=== PATIENT | female | born 1960 | race Caucasian/White ===

== ENCOUNTER 2020-09-20 05:09 | Emergency (ER) | payer OTHER, SELFPAY ==
[2020-09-20] VITALS (8 sets, daily range): BP systolic 127–145; BP diastolic 71–75; PULSE 90–106; RESP 12–20; TEMP 37.1–39.6; O2SAT 95–99
--- NOTE | ~2020-09-20 | XR_ITS ---
EXAMINATION: XR chest 1V portable DATE: 09/20/2020 06:51 INDICATION: Fever. TECHNIQUE: A single frontal view of the chest was obtained. COMPARISON: Chest 2 views 02/26/2010 FINDINGS: There are airspace opacities in left lower lung zone. No pleural effusion or pneumothorax. The heart size is normal. IMPRESSION: 1. Airspace opacities in left lower lung zone, consistent with pneumonia. Reviewed, dictated and finalized at location A.
[2020-09-20] MEDS: ACETAMINOPHEN 500 MG TABLET 1000 MG PO (06:00)
[2020-09-20] MEDS: SODIUM CHLORIDE 0.9% IV 1,000 ML 1000 ML IV CONT (06:08)
--- NOTE | 2020-09-20 06:12 | ED.SOB ---
HPI - SOB/Dyspnea General Chief Complaint: Shortness of Breath/Dyspnea Stated Complaint: feeling sick Time Seen by Provider: 09/20/20 05:45 Source: patient Mode of arrival: ambulatory Limitations: no limitations History of Present Illness HPI Narrative: Patient states she has had severe body aches, fever, and shortness of breath since Saturday. She has had a poor appetite and has not felt like even getting out of bed to go to the bathroom. Discomfort has been severe and ongoing since Saturday, not relieved by home measures. She has had moderately severe abdominal pain over her bladder and in her low back. Shortness of breath has been severe and has been made worse with any activity. MD elicited complaint: shortness of breath Severity: moderate Exacerbating factors: exertion Relieving factors: rest Related Data Allergies Allergy/AdvReac Type Severity Reaction Status Date / Time hydrocodone Allergy Unknown Verified 09/29/08 12:28 NONE Allergy Unknown Uncoded 12/08/02 12:54 CODEINE (Generic Allergy) Allergy Y Uncoded 12/08/02 13:52 Review of Systems Constitutional: Constitutional: Reports chills, Reports fatigue, Reports fever(s) and Reports weakness Eyes: Eyes: Reports no additional eye complaints ENT: Reports system reviewed and no additional complaints, except as documented Cardiovascular: Cardiovascular: Reports no additional cardiovascular complaints Respiratory: Respiratory: Reports cough and Reports dyspnea Gastrointestinal: Gastrointestinal: Reports abdominal pain Genitourinary: Genitourinary: Reports no additional female genitourinary complaints Musculoskeletal: Musculoskeletal: Reports no additional musculoskeletal complaints Integumentary/Breasts: Skin/Breast: Reports system reviewed and no additional complaints, except as docu Neurologic: Reports system reviewed and no additional complaints, except as documented Psychiatric: Psychiatric: Reports no additional psychiatric complaints Endocrine: Endocrine: Reports no additional endocrine complaints Hematologic/Lymphatic: Hematologic/Lymphatic: Reports no additional hematologic/lymphatic complaints Allergic/Immunologic: Allergic/Immunologic: Reports no additional allergic/immunologic complaints [facility] Past Medical History Medical History No significant past medical history Surgical History Surgical History H/O hand surgery Family History Family History (Updated 09/20/20 @ 06:19 by Axel Valnete MD) Mother Hypertension Social History Social History (Updated 09/20/20 @ 06:19 by Axel Valente MD) Smoking status: Current some day smoker Additional smoking assessment comments: sometimes smokes when with friends who do Alcohol use details: social at times Exam Const: Orientation/consciousness: patient oriented x3 HENMT: Head: normal to inspection Ears: external ears normal and TM's normal bilaterally Face and sinus: normal facial exam Mouth: Yes Normal oral and palatal mucosa present Throat: posterior oropharynx normal Eyes: Conjunctivae: conjunctivae normal Neck: Neck: normal visual inspection Chest: Chest palpation & inspection: normal inspection of the chest Resp: Effort & Inspection: normal respiratory effort Auscultation: clear to auscultation bilaterally Cardio: Rate: regular rate Rhythm: regular rhythm GI: GI Palp: Yes Soft to palpation (mild tenderness over bladder) : Other: deferred Skin: General skin exam: normal color Neuro: General: patient oriented x3 and moves all extremities Extrem: General: normal to inspection Psych: Mental Status: mental status grossly normal Thought content: Yes Normal thought content present Course Course Emergency Course: Labs, CXR were reviewed. Sign out to Dr Walden at 7am. Vital Signs Vital signs: Vital Signs Temperature 39.6 C H 09/20/20 05:34 Pulse
[2020-09-20 06:17] LABS: Basophils Absolute Auto 0.02 K/mm3 (0.00-0.10); Basophils Percent Auto 0.2 % (0.0-1.0); Eosinophils Absolute Auto 0.01 K/mm3 (0.02-0.50); Eosinophils Percent Auto 0.1 % (1.0-6.0); Hematocrit 37.8 % (35.0-49.0); Hemoglobin 12.8 g/dL (12.0-15.0); Immature Granulocyte Absolute 0.16 K/mm3 (0.00-0.00); Immature Granulocyte Percent A 1.2 % (0.0-0.0); Lymphocytes Absolute Auto 1.11 K/mm3 (1.10-4.50); Lymphocytes Percent Auto 8.5 % (18.0-42.0); Mean Corpuscular HGB Conc 33.9 g/dL (32.0-36.0); Mean Corpuscular Hemoglobin 30.4 pg (27.0-31.0); Mean Corpuscular Volume 89.8 fL (78.0-102.0); Mean Platelet Volume 11.9 fl (9.2-11.8); Monocytes Absolute Auto 0.99 K/mm3 (0.10-0.90); Monocytes Percent Auto 7.6 % (2.0-11.0); Neutrophils Absolute Auto 10.8 K/mm3 (1.7-7.2); Neutrophils Percent Auto 82.4 % (50.0-70.0); Platelet Count Result 247 K/mm3 (150-420); Red Blood Count 4.21 M/mm3 (4.20-5.40); Red Cell Distribution Width 13.4 % (11.6-14.4); White Blood Count 13.1 K/mm3 (4.8-10.8)
[2020-09-20 06:18] LABS: Add Urine Microscopic? YES; Appearance Urine Sl Cloudy (Clear); Bilirubin Urine Negative (Negative); Blood Urine 1+ (Negative); Color Urine Yellow (Yellow); Glucose Urine UA Negative (Negative); Ketones Urine Negative (Negative); Leukocyte Esterase Ur Negative (Negative); Nitrate Urine Negative (Negative); Protein Urine 3+ (Negative); Specific Grav Ur 1.025 (1.010-1.020)
[2020-09-20 06:26] LABS: Bacteria Urine 2+ /hpf; Squamous Epithelial Cell Urine Many /hpf (Few); WBC Urine 0-3 /hpf (0-3)
[2020-09-20 06:38] LABS: Alanine Aminotransferase 64 U/L (14-59); Alkaline Phosphatase 83 U/L (46-116); Anion Gap 13 mmol/L (8-16); Aspartate Amino Transferase 43 U/L (15-37); Bilirubin,Total 0.4 mg/dL (0.00-1.00); Blood Urea Nitrogen 14 mg/dL (7-18); Calcium 9.6 mg/dL (8.5-10.1); Carbon Dioxide 26 mmol/L (21-32); Chloride 92 mmol/L (98-108); Estimated CRCL calculation 42 ml/min; Estimated Glomerular Filt Rate 45; Glucose 141 mg/dL (70-99); Osmolality Calculated 274 mOsm/kg (285-295); Potassium 3.5 mmol/L (3.5-5.1); Sodium 131 mmol/L (136-145); Total Protein 8.7 g/dL (6.4-8.2)
[2020-09-20 06:46] LABS: Lipase 97 U/L (73-393)
[2020-09-20 06:50] LABS: BNP 96.8 pg/mL (0-100)
[2020-09-20 06:52] LABS: SARS-CoV-2 Ag Negative (Negative)
[2020-09-20 06:54] LABS: Lactic Acid Reflex 1.2 mmol/L (0.4-2.0)
--- NOTE | 2020-09-20 07:14 | PC.NURSE ---
Pt. resting, report given to GINA Sierra
[2020-09-20 07:15] LABS: Influenza Control Valid (Valid)
[2020-09-20] MEDS: ALBUTEROL SULFATE NEB 2.5 MG/3 ML INH INHALATION (07:41)
== END 2020-09-20 09:09 | disposition home or self-care (01) ==
PROVIDERS: Emergency Medicine; Emergency Provider Emergency Medicine; PCP Internal Medicine
DX: J18.9 Pneumonia, unspecified organism (principal); Z20.822 Contact with and (suspected) exposure to COVID-19; F17.200 Nicotine dependence, unspecified, uncomplicated; R50.9 Fever, unspecified
CPT/HCPCS: 36415; 71045; 80053; 81001; 83605; 83690; 83880; 85025; 87040; 87086; 87088; 87426; 87804; 94640; 96361; 96365; 99282; 99284; C9803; J1956; J7030

== ENCOUNTER 2020-09-28 08:39 | Outpatient (CLI) | payer OTHER, SELFPAY ==
--- NOTE | ~2020-09-28 | XR_ITS ---
EXAMINATION: XR chest 2V EXAM DATE: 09/28/2020 09:04 INDICATION: Pneumonia, still shortness of breath. TECHNIQUE: Frontal and lateral projections of the chest obtained and reviewed. Comparison is made to prior examination from 09/20/2020. FINDINGS: Significant improvement in previously seen left basilar pneumonia, with development of sma ll amount of left basilar postinfectious atelectasis. Moderate chronic hyperinflation. There is no pn eumothorax suspected. There are no pleural effusions. Cardiomediastinal silhouette is normal. There a re no osseous abnormalities identified. IMPRESSION: 1. Significant improvement in left basilar pneumonia. 2. Development of subsegmental atelectasis. 3. Chronic hyperinflation. Reviewed, dictated and finalized at location A.
--- NOTE | ~2020-09-28 | US_ITS ---
EXAMINATION: US right upper quadrant DATE: 09/28/2020 09:49 INDICATION: Elevated liver enzymes TECHNIQUE: Multiple grayscale and Doppler ultrasound images of the abdomen were obtained. COMPARISON: 10/21/2014 FINDINGS: The head and body of the pancreas are normal. The pancreatic tail is obscured by bowel gas. The liver is normal with normal echogenicity and echotexture. No surface nodularity. Normal hepatope muriel flow in the main portal vein. The gallbladder is normal with no abnormal wall thickening, pericho lecystic fluid or stones. The normal common bile duct measures 4 mm. There was no sonographic Norris sign. IMPRESSION: 1. Normal sonographic study of the gallbladder. Reviewed, dictated and finalized at location B.
== END 2020-09-28 08:40 | disposition home or self-care (01) ==
LOC: CHSIMG 08:42
PROVIDERS: PCP Internal Medicine; Visit Provider Internal Medicine
DX: R94.5 Abnormal results of liver function studies (principal); J18.9 Pneumonia, unspecified organism; Z51.89 Encounter for other specified aftercare
CPT/HCPCS: 71046; 76705

== ENCOUNTER 2020-10-17 13:34 | Outpatient (CLI) | payer OTHER, SELFPAY ==
[2020-10-17 13:45] LABS: Basophils Absolute Auto 0.04 K/mm3 (0.00-0.10); Basophils Percent Auto 0.5 % (0.0-1.0); Eosinophils Percent Auto 2.7 % (1.0-6.0); Hematocrit 37.6 % (35.0-49.0); Hemoglobin 12.4 g/dL (12.0-15.0); Immature Granulocyte Absolute 0.02 K/mm3 (0.00-0.00); Immature Granulocyte Percent A 0.3 % (0.0-0.0); Lymphocytes Absolute Auto 2.57 K/mm3 (1.10-4.50); Lymphocytes Percent Auto 34.2 % (18.0-42.0); Mean Corpuscular Volume 90.8 fL (78.0-102.0); Mean Platelet Volume 11.2 fl (9.2-11.8); Monocytes Absolute Auto 0.67 K/mm3 (0.10-0.90); Monocytes Percent Auto 8.9 % (2.0-11.0); Neutrophils Percent Auto 53.4 % (50.0-70.0); Platelet Count Result 207 K/mm3 (150-420); Red Blood Count 4.14 M/mm3 (4.20-5.40); Red Cell Distribution Width 13.1 % (11.6-14.4); White Blood Count 7.5 K/mm3 (4.8-10.8)
[2020-10-17 14:09] LABS: Alanine Aminotransferase 59 U/L (14-59); Albumin Level 4.2 g/dL (3.4-5.0); Alkaline Phosphatase 63 U/L (46-116); Anion Gap 9 mmol/L (8-16); Aspartate Amino Transferase 29 U/L (15-37); Bilirubin,Total 0.5 mg/dL (0.00-1.00); Blood Urea Nitrogen 20 mg/dL (7-18); Calcium 9.7 mg/dL (8.5-10.1); Carbon Dioxide 27 mmol/L (21-32); Chloride 103 mmol/L (98-108); Estimated Glomerular Filt Rate 42; Glucose 93 mg/dL (70-99); Osmolality Calculated 290 mOsm/kg (285-295); Potassium 4.1 mmol/L (3.5-5.1); Sodium 139 mmol/L (136-145); Total Protein 7.1 g/dL (6.4-8.2)
== END 2020-10-17 13:35 | disposition home or self-care (01) ==
LOC: CHSLAB 13:38
PROVIDERS: PCP Internal Medicine; Visit Provider Internal Medicine
DX: J18.9 Pneumonia, unspecified organism (principal); R94.5 Abnormal results of liver function studies
CPT/HCPCS: 36415; 80053; 85025

== ENCOUNTER 2020-10-31 15:13 | Outpatient (CLI) | payer OTHER, SELFPAY ==
--- NOTE | ~2020-10-31 | XR_ITS ---
XR heel RT min 2V DATE: 10/31/2020 15:49 INDICATION: Right heel and foot pain TECHNIQUE: Axial and lateral views COMPARISON: 10/31/2020 right foot FINDINGS: Mild plantar and posterior calcaneal enthesopathy. No fracture, dislocation or bone destruction of the calcaneus. IMPRESSION: Mild plantar and posterior calcaneal enthesopathy Reviewed, dictated and finalized at location A.
--- NOTE | ~2020-10-31 | XR_ITS ---
XR foot RT 2V DATE: 10/31/2020 15:49 INDICATION: Right heel and foot pain TECHNIQUE: 4 views COMPARISON: 10/31/2020 right heel FINDINGS: Mild plantar and posterior calcaneal enthesopathy without evidence of erosive change or per iostitis. Os tibiale externum, normal variant. No fracture, dislocation, periosteal reaction or bone destruction. IMPRESSION: Mild plantar and posterior calcaneal enthesopathy Reviewed, dictated and finalized at location A.
[2020-10-31 15:30] LABS: Basophils Absolute Auto 0.05 K/mm3 (0.00-0.10); Basophils Percent Auto 0.5 % (0.0-1.0); Eosinophils Absolute Auto 0.12 K/mm3 (0.02-0.50); Eosinophils Percent Auto 1.3 % (1.0-6.0); Hematocrit 39.2 % (35.0-49.0); Hemoglobin 12.8 g/dL (12.0-15.0); Immature Granulocyte Absolute 0.03 K/mm3 (0.00-0.00); Immature Granulocyte Percent A 0.3 % (0.0-0.0); Lymphocytes Absolute Auto 2.45 K/mm3 (1.10-4.50); Lymphocytes Percent Auto 25.9 % (18.0-42.0); Mean Corpuscular HGB Conc 32.7 g/dL (32.0-36.0); Mean Corpuscular Hemoglobin 29.4 pg (27.0-31.0); Mean Corpuscular Volume 90.1 fL (78.0-102.0); Mean Platelet Volume 11.3 fl (9.2-11.8); Monocytes Absolute Auto 0.68 K/mm3 (0.10-0.90); Monocytes Percent Auto 7.2 % (2.0-11.0); Neutrophils Absolute Auto 6.1 K/mm3 (1.7-7.2); Neutrophils Percent Auto 64.8 % (50.0-70.0); Platelet Count Result 280 K/mm3 (150-420); Red Blood Count 4.35 M/mm3 (4.20-5.40); Red Cell Distribution Width 12.5 % (11.6-14.4); White Blood Count 9.5 K/mm3 (4.8-10.8)
[2020-10-31 16:32] LABS: Alanine Aminotransferase 38 U/L (14-59); Albumin Level 4.5 g/dL (3.4-5.0); Alkaline Phosphatase 65 U/L (46-116); Anion Gap 9 mmol/L (8-16); Aspartate Amino Transferase 25 U/L (15-37); Bilirubin,Total 0.3 mg/dL (0.00-1.00); Blood Urea Nitrogen 20 mg/dL (7-18); Calcium 9.9 mg/dL (8.5-10.1); Carbon Dioxide 30 mmol/L (21-32); Chloride 102 mmol/L (98-108); Estimated Glomerular Filt Rate 56; Glucose 84 mg/dL (70-99); Osmolality Calculated 293 mOsm/kg (285-295); Potassium 4.2 mmol/L (3.5-5.1); Sodium 141 mmol/L (136-145); Total Protein 7.5 g/dL (6.4-8.2)
== END 2020-10-31 15:14 | disposition home or self-care (01) ==
LOC: CHSIMG 15:16
PROVIDERS: PCP Internal Medicine; Visit Provider Internal Medicine
DX: M79.671 Pain in right foot (principal); R79.89 Other specified abnormal findings of blood chemistry
CPT/HCPCS: 36415; 73620; 73650; 80053; 85025

== ENCOUNTER 2022-07-07 01:12 | Emergency (ER) | payer OTHER, SELFPAY ==
--- NOTE | ~2022-07-07 | XR_ITS ---
EXAMINATION: XR ankle LT min 3V DATE: 07/07/2022 01:27 INDICATION: Left ankle pain. Fall. TECHNIQUE: 4 views of left ankle were obtained. COMPARISON: None. FINDINGS: There is an oblique fracture of distal fibula with medial aspect of the fracture line 6 mm proximal to the level of the tibial plafond. The distal fracture fragment demonstrates near-anatomic alignment. There is mild osteoarthritis of talonavicular joint. There are enthesophytes at the upholstery covers inspector ior and plantar aspects of calcaneal tuberosity. IMPRESSION: 1. Oblique fracture of distal fibula. Reviewed, dictated and finalized at location A. IER SELF SERVICE GASOLINE
[2022-07-07 01:16] VITALS: BP 139/85; PULSE 83; RESP 18; TEMP 36.7; O2SAT 100
--- NOTE | 2022-07-07 01:37 | ED.LOWEXIN ---
HPI - Extremity Injury (Lower) General Chief Complaint: Extremity Injury, Lower Stated Complaint: Extremity Injury, Lower Source: patient and RN notes reviewed Mode of arrival: ambulatory Limitations: no limitations History of Present Illness HPI Narrative: Patient had been out with her daughters. She had some drinks earlier in the evening. She misstepped while she was out and twisted her left ankle. complaint: ankle injury Onset (ago): hour(s) (1) Injury: Left: ankle Type of Injury: inversion Place: street/outdoors Severity: moderate Relieving factors: rest Exacerbating factors: weight bearing, movement and palpation Context: walking Associated symptoms: snap/pop sensation and unable to bear weight Other symptoms: none Related Data Allergies Allergy/AdvReac Type Severity Reaction Status Date / Time hydrocodone Allergy Unknown Verified 09/29/08 12:28 NONE Allergy Unknown Uncoded 12/08/02 12:54 CODEINE (Generic Allergy) Allergy Y Uncoded 12/08/02 13:52 Review of Systems Review of Systems: All systems reviewed & are unremarkable except as noted in HPI and below PMFSH Past Medical History Medical History No significant past medical history Surgical History Surgical History H/O hand surgery Family History Family History (Updated 09/20/20 @ 06:19 by Axel Valente MD) Mother Hypertension Social History Social History (Updated 07/07/22 @ 01:39 by Axel Moses MD) Smoking status: Former smoker Additional smoking assessment comments: sometimes smokes when with friends who do Alcohol use details: social at times Exam Const: General: healthy appearing, no acute distress and alert Nutritional Appearance: well nourished Orientation/consciousness: patient oriented x3 Limitations: no limitations HENMT: Head: normal to inspection Ears: external ears normal Face/Nose/Sinus: Normal external nose present Face and sinus: normal facial exam Mouth: Yes moist mucous membranes Eyes: Conjunctivae: conjunctivae normal Pupils: Equal, round and reactive pupils present EOM: EOMs intact bilaterally Neck: Neck: normal visual inspection Resp: Effort & Inspection: normal respiratory effort Auscultation: clear to auscultation bilaterally Cardio: Rate: regular rate Rhythm: regular rhythm GI: GI Palp: Yes Soft to palpation and No Tenderness to palpation present (GI) Auscultation: normal bowel sounds Back/Spine/Pelvis: Cervical Spine: cervical ROM normal Thoracic/Lumbar Spine: thoraco-lumbar ROM normal Skin: General skin exam: normal color Rashes: no rashes Neuro: General: patient oriented x3, moves all extremities, no focal motor deficits and CN's II-XI intact bilaterally Speech: normal speech Extrem: General: normal exam except as noted and no clubbing, cyanosis or edema Left lower extremity: lower leg Details: tenderness Location: of the distal fibula and localized swelling Location: of the distal lower leg, ankle Details: tenderness Location: not of the lateral malleolus, not of the medial malleolus and not of the anterior talofibular ligament and foot Details: no tenderness Psych: Mental Status: mental status grossly normal Affect: normal affect Attitude: cooperative Course Vital Signs Vital signs: Vital Signs Temperature 36.7 C 07/07/22 01:16 Pulse Rate 83 07/07/22 01:16 Respiratory Rate 18 07/07/22 01:16 Blood Pressure 139/85 07/07/22 01:16 Pulse Oximetry 100 07/07/22 01:16 Oxygen Delivery Room Air 07/07/22 01:16 Temperature 36.7 C 07/07/22 01:16 Pulse Rate 83 07/07/22 01:16 Respiratory Rate 18 07/07/22 01:16 Blood Pressure 139/85 07/07/22 01:16 Pulse Oximetry 100 07/07/22 01:16 Oxygen Delivery Room Air 07/07/22 01:16 Procedures Orthopedic Splinting/Casting Injury #1: Splinting/Casting Date: 07/07/22 Side: left
[2022-07-07] MEDS: KETOROLAC 30 MG/ML VIAL (*BKC) IM (01:42)
== END 2022-07-07 02:08 | disposition home or self-care (01) ==
LOC: CHSED 01:53
PROVIDERS: Emergency Provider Emergency Medicine; PCP Internal Medicine
DX: S82.832A Other fracture of upper and lower end of left fibula, initial encounter for closed fracture (principal); Z87.891 Personal history of nicotine dependence; X50.0XXA Overexertion from strenuous movement or load, initial encounter
CPT/HCPCS: 73610; 96372; 99283; J1885; L2112

== ENCOUNTER 2022-07-24 10:55 | Outpatient (CLI) | payer OTHER, SELFPAY ==
--- NOTE | ~2022-07-24 | XR_ITS ---
Left ankle Technique: AP, oblique, and lateral views were obtained. Clinical History: Fracture COMPARISON: 07/07/2022 Findings: Oblique, minimally displaced fracture of the distal fibula, just proximal to the level ankl e mortise, is essentially stable from prior exam. Questionable minimal early callus formation.. Ankle mortise and other visualized joint spaces are preserved. Soft tissues are otherwise unremarkable. Impression: Oblique fracture of the distal fibula is essentially unchanged from prior exam. Questionable minimal callus formation. Reviewed, dictated and finalized at location M. OR IN CHIEF NEWSPAPER Impression: Oblique fracture of the distal fibula is essentially unchanged from prior exam. Questionable minimal callus formation.
== END 2022-07-24 10:56 | disposition home or self-care (01) ==
LOC: CHSLAB 10:58 → CHSIMG 11:00
PROVIDERS: PCP Internal Medicine; Visit Provider Internal Medicine
DX: S82.892A Other fracture of left lower leg, initial encounter for closed fracture (principal)
CPT/HCPCS: 73610

== ENCOUNTER 2022-08-23 09:58 | Outpatient (CLI) | payer OTHER, SELFPAY ==
--- NOTE | ~2022-08-23 | XR_ITS ---
XR ankle LT min 3V DATE: 08/23/2022 10:17 INDICATION: Left distal fibular fracture follow-up TECHNIQUE: 4 views COMPARISON: July 24, 2022 left ankle FINDINGS: Virtually nondisplaced linear oblique fracture of the distal fibula slightly superior to th e ankle mortise is again noted. The fracture line is less apparent, with some sclerotic new bone form ation. There is no interval change in position or alignment. Ankle mortise is intact. IMPRESSION: Healing virtually nondisplaced distal fibular fracture Reviewed, dictated and finalized at location L. S EXHIBITOR
== END 2022-08-23 09:59 | disposition home or self-care (01) ==
LOC: CHSIMG 10:01
PROVIDERS: PCP Internal Medicine; Visit Provider Internal Medicine
DX: S82.832D Other fracture of upper and lower end of left fibula, subsequent encounter for closed fracture with routine healing (principal)
CPT/HCPCS: 73610

== ENCOUNTER 2022-08-27 08:24 | Outpatient (RCR) | payer OTHER, SELFPAY ==
--- NOTE | 2022-08-27 09:25 | PTOPEVAL1 ---
Assessment and note entered by JT File, PT Evaluation Information Assessment Status Evaluation Diagnosis L distal fibular fracture Onset 07/06/22 Subjective Information patient reports she broke her L ankle on 07/06/22 in a fall. she reports the leg was caught between the lawnmower and her floor danielle. 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 she reports she has to be on her feet all day. she reports she has difficulty with walking. she reports it feels weird to walk. she reports she also has pain and tightness in the ankle and foot. she reports her toes feel a bit numb. she reports they have been this way since the break. she reports she does get swelling in the L ankle if she is up on her feet too much. Reported Pain Level Pain Score 3: Self Report Assessment PT Clinical Summary mrs. atkinson is a 61 yo woman who presents to skilled PT services for evaluation and treatment of pain and weakness in the L ankle following a fracture. she presents today with weakness, pain, decreased rom, and abnormal gait mechanics. she would benefit from skilled PT to address her objective/functional deficits and progress towards a return to her prior level functional activity performance/quality of life. Plan of Care Interventions Electrical Stimulation,Gait Training,Hot Pack/Cold Pack,Manual Therapy,Neuro Re-education,Patient/ Caregiver Educati,Therapeutic Activities, Therapeutic Exercise PT Services Indicated Yes Treatment Frequency and 3x weekly for 12 visits Duration These treatments will address the objective and functional deficits as defined above. The patient will be advanced safely and appropriately in order for the patient to progress towards his/her prior level of function. Additional exercises will be introduced and as well as a comprehensive home exercise program upon discharge, if needed, ?to ensure carryover of functional gains achieved in the clinic. This treatment plan has been reviewed and agreement upon by the patient.
== END 2022-09-06 23:59 | disposition home or self-care (01) ==
LOC: CHSPT 08:24
PROVIDERS: PCP Internal Medicine; Visit Provider Internal Medicine
DX: S82.832D Other fracture of upper and lower end of left fibula, subsequent encounter for closed fracture with routine healing (principal)
CPT/HCPCS: 97014; 97110; 97112; 97161; 97530; G0283

== ENCOUNTER 2022-12-30 16:49 | Emergency (ER) | payer OTHER, SELFPAY ==
[2022-12-30 16:49] VITALS: BP 161/91; PULSE 70; RESP 16; TEMP 36.3; O2SAT 100
[2022-12-30] MEDS: TETANUS,DIPHTHERIA,AC PERTUSSIS ADULT 0.5 ML (ADACEL) IM (17:03)
[2022-12-30] MEDS: LIDOCAINE HCL 1% LOCAL INJ 10 ML VIAL 3 ML INFILTRATE (17:05)
--- NOTE | 2022-12-30 17:08 | ED.GENADULT ---
HPI - General Adult General Chief complaint: Wound/Laceration Stated complaint: finger laceration Time Seen by Provider: 12/30/22 16:55 Source: patient Mode of arrival: ambulatory Limitations: no limitations History of Present Illness HPI narrative: 62-year-old white right-handed female was using a food greater to clean it and it cut her right little finger on the lateral aspect shaving the skin. Continues to bleed. Patient is given a tetanus shot in the emergency department. Denies any loss of function. Denies any other injury. Otherwise been doing fine eating drinking stooling and voiding fine. Denies cough shortness of breath fever sore throat runny nose problems walking talking seeing or hearing, numbness or weakness, rash or itching swelling lumps or bumps bruising, dizziness or lightheadedness. Denies any other complaints. Related Data Allergies Allergy/AdvReac Type Severity Reaction Status Date / Time hydrocodone Allergy Unknown Verified 09/29/08 12:28 NONE Allergy Unknown Uncoded 12/08/02 12:54 CODEINE (Generic Allergy) Allergy Y Uncoded 12/08/02 13:52 Review of Systems Review of Systems: All systems reviewed & are unremarkable except as noted in HPI and below PMFSH Past Medical History Medical History No significant past medical history Surgical History Surgical History H/O hand surgery Family History Family History (Updated 09/20/20 @ 06:19 by Axel Valente MD) Mother Hypertension Social History Social History (Updated 07/07/22 @ 01:39 by Axel Moses MD) Smoking status: Former smoker Additional smoking assessment comments: sometimes smokes when with friends who do Alcohol use details: social at times Exam Narrative: White patient female with mild distress.? Head normocephalic, atraumatic.? Eyes conjunctiva pink sclera nonicteric.? Extraocular movements are intact.? Ears externally normal.? Extremities: Right little finger ulnar side distal phalanx shaved laceration with active bleeding. Controlled with pressure initially. There is no tendon injury neurovascular is intact capillary refill is normal.? Skin is warm and dry without rashes or lesions.? Neurological patient is alert and oriented x4.? Motor and sensory grossly intact.? Gait is normal. Course Vital Signs Vital signs: Vital Signs Temperature 36.3 C L 12/30/22 16:49 Pulse Rate 70 12/30/22 16:49 Respiratory Rate 16 12/30/22 16:49 Blood Pressure 161/91 H 12/30/22 16:49 Pulse Oximetry 100 12/30/22 16:49 Oxygen Delivery Room Air 12/30/22 16:49 Temperature 36.3 C L 12/30/22 16:49 Pulse Rate 70 12/30/22 16:49 Respiratory Rate 16 12/30/22 16:49 Blood Pressure 161/91 H 12/30/22 16:49 Pulse Oximetry 100 12/30/22 16:49 Oxygen Delivery Room Air 12/30/22 16:49 Medical Decision Making MDM Narrative Medical decision making narrative: Patient was placed in room 7 history and physical were performed she was given a tetanus immunization surgeon gel was placed on the wound digital block with 1% lidocaine was given. surgicel and gauze was applied the wound and pressure was held. Small tourniquet was applied to right finger. Then silver nitrate was tried but was unsuccessful in controlling the bleeding. Tried electrocautery using a pen without success. So ultimately we added Surgicel guaze and pressure dressing applied which controlled the bleeding. she is given acetaminophen and Augmentin 875 Independent Historian: ? alexandro Zhao Differential Dx includes but not limited to: laceration coagulopathy Medications were Reviewed:? medicines reviewed? Medications treatments given: digital block with 1% lidocaine, silver nitrate sticks electrocautery Surgicel and a pressure dressing. Independently Interpreted by me:? External Source Review:?? Patient had a
[2022-12-30] MEDS: ACETAMINOPHEN 500 MG TABLET 1000 MG PO (17:38)
[2022-12-30] MEDS: SILVER NITRATE (*SP) STICK 10 EACH TOPICAL (17:39)
[2022-12-30] MEDS: AMOXICILLIN/CLAVULANATE K 875-125 MG TAB 1 TABLET PO (17:43)
[2022-12-30 17:49] VITALS: BP 160/90; PULSE 76; RESP 20; TEMP 36.8; O2SAT 97
== END 2022-12-30 17:57 | disposition home or self-care (01) ==
PROVIDERS: Emergency Provider Emergency Medicine; PCP Internal Medicine
DX: S61.216A Laceration without foreign body of right little finger without damage to nail, initial encounter (principal); Z87.891 Personal history of nicotine dependence; Z23 Encounter for immunization; W26.8XXA Contact with other sharp object(s), not elsewhere classified, initial encounter
CPT/HCPCS: 12001; 90471; 90715; 99283; A9270

== ENCOUNTER 2023-01-16 07:15 | Outpatient (CLI) | payer OTHER, SELFPAY ==
[2023-01-16 07:29] LABS: Basophils Absolute Auto 0.03 K/mm3 (0.00-0.10); Basophils Percent Auto 0.6 % (0.0-1.0); Eosinophils Absolute Auto 0.14 K/mm3 (0.02-0.50); Eosinophils Percent Auto 2.6 % (1.0-6.0); Hematocrit 37.5 % (35.0-49.0); Hemoglobin 12.4 g/dL (12.0-15.0); Immature Granulocyte Absolute 0.01 K/mm3 (0.00-0.00); Immature Granulocyte Percent A 0.2 % (0.0-0.0); Lymphocytes Absolute Auto 2.05 K/mm3 (1.10-4.50); Lymphocytes Percent Auto 37.7 % (18.0-42.0); Mean Corpuscular HGB Conc 33.1 g/dL (32.0-36.0); Mean Corpuscular Hemoglobin 30.4 pg (27.0-31.0); Mean Corpuscular Volume 91.9 fL (78.0-102.0); Mean Platelet Volume 11.1 fl (9.2-11.8); Monocytes Absolute Auto 0.45 K/mm3 (0.10-0.90); Monocytes Percent Auto 8.3 % (2.0-11.0); Neutrophils Absolute Auto 2.8 K/mm3 (1.7-7.2); Neutrophils Percent Auto 50.6 % (50.0-70.0); Platelet Count Result 250 K/mm3 (150-420); Red Blood Count 4.08 M/mm3 (4.20-5.40); Red Cell Distribution Width 12.4 % (11.6-14.4); White Blood Count 5.4 K/mm3 (4.8-10.8)
[2023-01-16 07:31] LABS: Appearance Urine Clear (Clear); Bilirubin Urine Negative (Negative); Blood Urine Negative (Negative); Color Urine Light Yellow (Yellow); Glucose Urine UA Negative (Negative); Ketones Urine Negative (Negative); Leukocyte Esterase Ur Negative (Negative); Nitrate Urine Negative (Negative); Protein Urine Negative (Negative); Urobilinogen Urine 0.2 mg/dL (0.2-1.0); pH Urine 6.5 (5.0-8.0)
[2023-01-16 07:32] LABS: Add Urine Microscopic? NO
--- NOTE | 2023-01-16 07:34 | ECG_ITS ---
Measurements Intervals [place] Rate: 51 P: 47 OK: 195 QRS: 63 QRSD: 89 T: 48 QT: 447 QTc: 415 Interpretive Statements SINUS BRADYCARDIA NO PREVIOUS ECG AVAILABLE FOR COMPARISON Electronically Signed On 01-16-2023 19:41:13 CDT by Elina Roth M.D.
[2023-01-16 08:16] LABS: Alanine Aminotransferase 29 U/L (14-59); Albumin Level 3.9 g/dL (3.4-5.0); Alkaline Phosphatase 55 U/L (46-116); Anion Gap 8 mmol/L (8-16); Aspartate Amino Transferase 16 U/L (15-37); Bilirubin,Total 0.4 mg/dL (0.00-1.00); Blood Urea Nitrogen 22 mg/dL (7-18); Carbon Dioxide 29 mmol/L (21-32); Chloride 105 mmol/L (98-108); Cholesterol 246 mg/dL (0-200); Estimated Glomerular Filt Rate 60; Glucose 108 mg/dL (70-99); HDL Direct 75 mg/dL (40-60); LDL Cholesterol Calculated 157 mg/dL (<130); Osmolality Calculated 298 mOsm/kg (285-295); Potassium 4.4 mmol/L (3.5-5.1); Sodium 142 mmol/L (136-145); Thyroid Stimulating Hormone 1.55 uIU/mL (0.36-3.74); Total Protein 6.8 g/dL (6.4-8.2); Triglycerides 70 mg/dL (0-150)
[2023-01-16 11:26] LABS: Hemoglobin A1C 5.5 % (<5.7)
== END 2023-01-16 07:16 | disposition home or self-care (01) ==
LOC: CHSLAB 07:17
PROVIDERS: PCP Internal Medicine; Visit Provider Internal Medicine
DX: I10 Essential (primary) hypertension (principal); R73.09 Other abnormal glucose; R00.1 Bradycardia, unspecified
CPT/HCPCS: 36415; 80053; 80061; 81003; 83036; 84443; 85025; 93005

== ENCOUNTER 2023-01-17 12:08 | Outpatient (CLI) | payer OTHER, SELFPAY ==
--- NOTE | ~2023-01-17 | XR_ITS ---
Clinical Indication: Hypertension PA and lateral views of the chest: Comparison: 09/28/2020 Findings: The lungs are clear, without evidence of focal consolidation or pleural effusion. Cardiome diastinal silhouette is within normal limits. Bones and soft tissues are unremarkable. Impression: Normal chest. Reviewed, dictated and finalized at location . Impression: Normal chest.
== END 2023-01-17 12:09 | disposition home or self-care (01) ==
LOC: CHSIMG 12:11
PROVIDERS: PCP Internal Medicine; Visit Provider Internal Medicine
DX: I10 Essential (primary) hypertension (principal)
CPT/HCPCS: 71046

== ENCOUNTER 2023-02-06 11:55 | Outpatient (CLI) | payer OTHER, SELFPAY ==
--- NOTE | ~2023-02-06 | MM_ITS ---
EXAMINATION: MM screening naomi BI w victor hugo HISTORY: Screening mammogram TECHNIQUE: Craniocaudal and mediolateral oblique 3-D tomosynthesis images were obtained and synthetic 2-D images were generated. CAD analysis was submitted and interpreted. COMPARISON: August 03, 2016 bilateral screening mammogram BREAST PARENCHYMAL COMPOSITION: The breasts are heterogeneously dense, which may obscure small masses . FINDINGS: There is no evidence of suspicious mass, calcification, or architectural distortion to sugg est malignancy in either breast. There has been no suspicious interval change. IMPRESSION: 1. No mammographic evidence of malignancy. 2. Recommend routine screening mammography in one year. BI-RADS Category 1: Negative Reviewed, dictated and finalized at location A.
--- NOTE | ~2023-02-06 | DEXA_ITS ---
Bone Density Report Name: GENE VILLALBA Age: 62 Sex: Female Ethnicity: White Date of : 1960 Indication: postmenopausal; screening for osteoporosis; prior fracture; Referring Provider: Vishnu Arellano Study: Bone densitometry was performed. Exam Date: February 06, 2023 Accession number: [id number] Bone Density: Region BMD T-score Z-score Classification AP Spine(L1-L4) 0.937 -1.0 0.4 Normal Femoral Neck (Left) 0.700 -1.3 0.0 Osteopenia Total Hip (Left) 0.811 -1.1 -0.1 Osteopenia Femoral Neck (Right) 0.648 -1.8 -0.5 Osteopenia Total Hip (Right) 0.808 -1.1 -0.1 Osteopenia Femoral Neck Mean 0.674 -1.6 -0.3 Osteopenia Total Hip Mean 0.809 -1.1 -0.1 Osteopenia World Health Organization criteria for BMD impression classify patients as: Normal (T-score at or above -1.0), Osteopenia (T-score between -1.0 and -2.5), or Osteoporosis (T-score at or below -2.5). 10-year Fracture Risk(1): Major Osteoporotic Fracture 15% Hip Fracture 1.6% Reported Risk Factors: [place] (), Neck BMD=0.648, BMI=24.3, previous fracture (1) FRAX(R) Version 3.08. Fracture probability calculated for an untreated patient. Fracture probability may be lower if the patient has received treatment. Clinical Information Provided by Patient: Has had a low trauma fracture Has used the following medications: Vitamin D, multi Patient maximum height was 66 Menopause Age: 54 No regular weight bearing exercise Drinks caffeinated beverages Onset of menses at age 16 Number of children 2 Impression: The patient has low bone mass, based on the Right Femoral Neck T-score. The patient has risk factors, including: previous fracture. Discussion: BONE DENSITY IS LOW AT ONE OR MORE SKELETAL SITES. This patient's lowest T-score is low at one or more skeletal sites. It meets the World Health Organization's (WHO) criteria for ?low bone mass? (T-score between -1.0 and -2.5). The patient's 10-year risk of fracture as calculated by FRAX is less than the threshold where pharmacological therapy is recommended by the National Osteoporosis Foundation (NOF). However, all treatment decisions require clinical judgment and consideration of individual patient factors, including patient preferences, comorbidities, previous drug use, risk factors not captured in the FRAX model (e.g., frailty, falls, vitamin D deficiency, increased bone turnover, interval significant decline in bone density) and possible under or overestimation of fracture risk by FRAX. The patient should follow a healthful lifestyle (good nutrition with adequate calcium and vitamin D, and appropriate weight-bearing exercise). Follow-Up: Consider repeating this study in 2 to 3 years to reassess this patient's status, or sooner if there is some new clinica
== END 2023-02-06 11:56 | disposition home or self-care (01) ==
LOC: CHSIMG 11:56
PROVIDERS: PCP Internal Medicine; Visit Provider Internal Medicine
DX: Z12.31 Encounter for screening mammogram for malignant neoplasm of breast (principal); Z78.0 Asymptomatic menopausal state; M85.89 Other specified disorders of bone density and structure, multiple sites
CPT/HCPCS: 77063; 77067; 77080

== ENCOUNTER 2023-02-07 14:28 | Outpatient (CLI) | payer OTHER, SELFPAY ==
[2023-02-10 22:22] LABS: Vitamin D 25 Hydroxy 58 ng/mL (30-100)
== END 2023-02-07 14:29 | disposition home or self-care (01) ==
LOC: CHSLAB 14:30
PROVIDERS: PCP Internal Medicine; Visit Provider Nurse Practitioner Family
DX: M85.89 Other specified disorders of bone density and structure, multiple sites (principal); Z78.0 Asymptomatic menopausal state; E55.9 Vitamin D deficiency, unspecified
CPT/HCPCS: 36415; 82306

== ENCOUNTER 2023-03-01 15:14 | Outpatient (CLI) | payer OTHER, SELFPAY ==
--- NOTE | ~2023-03-01 | XR_ITS ---
XR chest 2V 03/01/2023 15:44 Indication: Tachycardia Procedure: 2 view chest Comparison: Comparison to multiple prior studies sequentially, with oldest reviewed study dated 02/26. Findings: Heart size normal. No focal air space disease, pulmonary edema, pleural effusion or suspect ed pneumothorax. Impression: 1: No acute cardiopulmonary disease. Reviewed, dictated and finalized at location B. Impression: 1: No acute cardiopulmonary disease.
[2023-03-01 15:33] LABS: Basophils Absolute Auto 0.03 K/mm3 (0.00-0.10); Basophils Percent Auto 0.3 % (0.0-1.0); Eosinophils Absolute Auto 0.07 K/mm3 (0.02-0.50); Eosinophils Percent Auto 0.8 % (1.0-6.0); Hematocrit 39.4 % (35.0-49.0); Hemoglobin 13.1 g/dL (12.0-15.0); Immature Granulocyte Absolute 0.02 K/mm3 (0.00-0.00); Immature Granulocyte Percent A 0.2 % (0.0-0.0); Lymphocytes Absolute Auto 2.38 K/mm3 (1.10-4.50); Lymphocytes Percent Auto 27.3 % (18.0-42.0); Mean Corpuscular HGB Conc 33.2 g/dL (32.0-36.0); Mean Corpuscular Volume 90.2 fL (78.0-102.0); Mean Platelet Volume 11.5 fl (9.2-11.8); Monocytes Absolute Auto 0.65 K/mm3 (0.10-0.90); Monocytes Percent Auto 7.5 % (2.0-11.0); Neutrophils Absolute Auto 5.6 K/mm3 (1.7-7.2); Neutrophils Percent Auto 63.9 % (50.0-70.0); Platelet Count Result 277 K/mm3 (150-420); Red Blood Count 4.37 M/mm3 (4.20-5.40); Red Cell Distribution Width 12.4 % (11.6-14.4); White Blood Count 8.7 K/mm3 (4.8-10.8)
[2023-03-01 15:36] LABS: Appearance Urine Clear (Clear); Bilirubin Urine Negative (Negative); Blood Urine Negative (Negative); Color Urine Light Yellow (Yellow); Glucose Urine UA Negative (Negative); Ketones Urine Trace (Negative); Leukocyte Esterase Ur Negative (Negative); Nitrate Urine Negative (Negative); Protein Urine Trace (Negative); Specific Grav Ur 1.025 (1.010-1.020); Urobilinogen Urine 0.2 mg/dL (0.2-1.0)
[2023-03-01 15:46] LABS: D Dimer 0.19 mg/L (0.19-0.50)
[2023-03-01 15:47] LABS: Add Urine Microscopic? YES; RBC Urine None seen /hpf (0-2); WBC Urine None seen /hpf (0-3)
[2023-03-01 15:48] LABS: Bacteria Urine 1+ /hpf; Squamous Epithelial Cell Urine Few /hpf (Few)
[2023-03-01 15:49] LABS: Influenza Control Valid (Valid); SARS-CoV-2 Ag Negative (Negative)
[2023-03-01 16:04] LABS: Alanine Aminotransferase 24 U/L (14-59); Albumin Level 4.6 g/dL (3.4-5.0); Alkaline Phosphatase 60 U/L (46-116); Anion Gap 9 mmol/L (8-16); Aspartate Amino Transferase 12 U/L (15-37); Bilirubin,Total 0.4 mg/dL (0.00-1.00); Blood Urea Nitrogen 35 mg/dL (7-18); CRP < 0.1 mg/dL (0.0-0.9); Calcium 10.1 mg/dL (8.5-10.1); Carbon Dioxide 29 mmol/L (21-32); Chloride 103 mmol/L (98-108); Creatine Kinase 172 U/L (26-192); Estimated Glomerular Filt Rate 31; Glucose 109 mg/dL (70-99); Osmolality Calculated 301 mOsm/kg (285-295); Potassium 4.4 mmol/L (3.5-5.1); Sodium 141 mmol/L (136-145); Total Protein 7.9 g/dL (6.4-8.2)
== END 2023-03-01 15:15 | disposition home or self-care (01) ==
LOC: CHSLAB 15:17
PROVIDERS: PCP Internal Medicine; Visit Provider Nurse Practitioner Family
DX: R00.0 Tachycardia, unspecified (principal); I10 Essential (primary) hypertension; R52 Pain, unspecified
CPT/HCPCS: 71046; 80053; 81001; 82550; 82553; 84484; 85025; 85380; 86140; 87086; 87088; 87426; 87804; C9803

== ENCOUNTER 2023-03-04 13:08 | Outpatient (CLI) | payer OTHER, SELFPAY ==
[2023-03-04 14:07] LABS: Appearance Urine Clear (Clear); Bilirubin Urine Negative (Negative); Blood Urine Negative (Negative); Color Urine Light Yellow (Yellow); Glucose Urine UA Negative (Negative); Ketones Urine Negative (Negative); Leukocyte Esterase Ur Negative (Negative); Nitrate Urine Negative (Negative); Protein Urine Negative (Negative); Specific Grav Ur >= 1.030 (1.010-1.020); Urobilinogen Urine 0.2 mg/dL (0.2-1.0); pH Urine 5.5 (5.0-8.0)
[2023-03-04 14:19] LABS: Add Urine Microscopic? NO
[2023-03-04 17:26] LABS: Alanine Aminotransferase 25 U/L (14-59); Albumin Level 4.4 g/dL (3.4-5.0); Alkaline Phosphatase 55 U/L (46-116); Anion Gap 13 mmol/L (8-16); Aspartate Amino Transferase 22 U/L (15-37); Bilirubin,Total 0.5 mg/dL (0.00-1.00); Blood Urea Nitrogen 24 mg/dL (7-18); Calcium 9.6 mg/dL (8.5-10.1); Carbon Dioxide 25 mmol/L (21-32); Chloride 103 mmol/L (98-108); Estimated Glomerular Filt Rate 49; Glucose 112 mg/dL (70-99); Osmolality Calculated 297 mOsm/kg (285-295); Potassium 4.6 mmol/L (3.5-5.1); Sodium 141 mmol/L (136-145); Total Protein 7.2 g/dL (6.4-8.2)
--- NOTE | 2023-03-05 15:14 | WPDHOLTEREM ---
Holter/Event Monitor Holter/Event Monitor Date of procedure: 03/04/23 Holter/Event Procedure: 24 Hr Holter Monitor Indications: Tachycardia Conclusion: 1. 24 hour holter monitor on 03/04/23. 2. Underlying rhythm is sinus rhythm. HR range 47-141 bpm; average HR 76 bpm. HR at 141 bpm was at 11:52. 3. There are 32 premature supraventricular complexes and 2 supraventricular couplets. No supraventricular tachycardia. 4. No premature ventricular complexes. No ventricular tachycardia. 5. No sinoatrial or atrioventricular blocks. No significant pauses greater than 2 seconds. There is 1 episode of second degree AV block, type I at 02:44. 6. No symptoms available for correlation.
== END 2023-03-04 13:09 | disposition home or self-care (01) ==
LOC: CHSLAB 13:10
PROVIDERS: PCP Internal Medicine; Visit Provider Nurse Practitioner Family
DX: N28.9 Disorder of kidney and ureter, unspecified (principal); I10 Essential (primary) hypertension; R00.0 Tachycardia, unspecified; I44.1 Atrioventricular block, second degree
CPT/HCPCS: 36415; 80053; 81003; 93225; 93226

== ENCOUNTER 2023-03-21 07:14 | Outpatient (CLI) | payer OTHER, SELFPAY ==
--- NOTE | ~2023-03-21 | US_ITS ---
Renal-Bladder ultrasound Clinical History: Acute kidney injury Technique: Real-time sonographic imaging of the kidneys and urinary bladder was performed. Findings: The right kidney measures 10.3 cm in length and the left kidney measures 10.4 cm. There is no hydronephrosis or renal calculus identified. Renal cortical echogenicity is within normal limits. No renal mass lesion is identified. The urinary bladder is moderately distended at the time of this exam. No intraluminal echoes are iden tified. No abnormal wall thickening is seen. Impression: Unremarkable ultrasound of the kidneys and urinary bladder. Reviewed, dictated and finalized at location M. Impression: Unremarkable ultrasound of the kidneys and urinary bladder.
[2023-03-21 08:25] LABS: Alanine Aminotransferase 24 U/L (14-59); Alkaline Phosphatase 54 U/L (46-116); Anion Gap 8 mmol/L (8-16); Aspartate Amino Transferase 17 U/L (15-37); Bilirubin,Total 0.3 mg/dL (0.00-1.00); Blood Urea Nitrogen 22 mg/dL (7-18); Carbon Dioxide 27 mmol/L (21-32); Chloride 101 mmol/L (98-108); Estimated Glomerular Filt Rate > 60; Glucose 102 mg/dL (70-99); Osmolality Calculated 285 mOsm/kg (285-295); Potassium 4.4 mmol/L (3.5-5.1); Sodium 136 mmol/L (136-145); Total Protein 6.7 g/dL (6.4-8.2)
== END 2023-03-21 07:15 | disposition home or self-care (01) ==
LOC: CHSIMG 07:15
PROVIDERS: PCP Internal Medicine; Visit Provider Internal Medicine
DX: N17.9 Acute kidney failure, unspecified (principal)
CPT/HCPCS: 36415; 76775; 80053

== ENCOUNTER 2023-04-01 13:34 | Outpatient (CLI) | payer OTHER, SELFPAY ==
--- NOTE | 2023-04-01 13:40 | ECHO_ITS ---
Patient Info Name: Danelle Bo Age: 62 years : 1960 Gender: Female Ht: 66 in Wt: 150 lbs BSA: 1.79 m2 HR: 70 bpm BP: 160 / 95 mmHg Heart Rhythm: Sinus Rhythm Technical Quality: Good Exam Date: 04/01/2023 1:52 PM Exam Location: [facility] Patient Status: Outpatient Admit Date: 04/01/2023 Staff Ordering Physician: Vishnu Arellano MD Body Straightener: Jane Wilson RDCS Attending Provider: Vishnu Arellano MD Exam Type: CA echo doppler color flow Study Info Indications - Tachycardia Complete two-dimensional, color flow and Doppler transthoracic echocardiogram is performed. Summary 1. Complete two-dimensional, color flow and Doppler transthoracic echocardiogram is performed. 2. Left ventricular chamber dimension is normal. 3. Left ventricular systolic function is normal, estimated at 60-65%. 4. The left ventricular diastolic function is abnormal. 5. E/e' 10 is mildly elevated. 6. There is mild aortic valve sclerosis. 7. There is mild mitral valve regurgitation. 8. There is trace tricuspid valve regurgitation. 9. No pulmonary hypertension, estimated pulmonary arterial systolic pressure is 22 mmHg. 10. There is trace pulmonic regurgitation. Left Ventricle E/e' 10 is mildly elevated. Left ventricular chamber dimension is normal. Left ventricular systolic function is normal, estimated at 60-65%. The left ventricular diastolic function is abnormal. Right Ventricle Right ventricular systolic function is normal and with normal TAPSE 2.4 cm. Right ventricular chamber dimension is normal. Left Atria Left atrial chamber dimension is normal. Right Atria Right atrial chamber dimension is normal. Aortic Valve The aortic valve is trileaflet. There is mild aortic valve sclerosis. There is no aortic valve stenosis. There is no aortic valve regurgitation. Pulmonic Valve There is trace pulmonic regurgitation. Mitral Valve There is no mitral valve stenosis. There is mild mitral valve regurgitation. Tricuspid Valve There is trace tricuspid valve regurgitation. No pulmonary hypertension, estimated pulmonary arterial systolic pressure is 22 mmHg. Pericardium/Pleural There is no pericardial effusion. Inferior Vena Cava Normal inferior vena cava with >50% collapse upon inspiration consistent with normal right atrial pressure, 5 mmHg. Aorta The aortic root size at the sinus of Valsalva is normal. Left Ventricular Outflow Tract Name Value Normal LVOT 2D LVOT Diameter 2.2 cm LVOT Doppler LVOT Peak Velocity 137 cm/s LVOT Peak Gradient 7 mmHg LVOT Mean Gradient 4 mmHg LVOT VTI 33 cm LVOT VTI/AV VTI Ratio 0.7 LVOT Stroke Volume 124 ml Pulmonic Valve Name Value Normal RVOT Doppler RVOT Peak Gradient 2 mmHg PV Doppler
== END 2023-04-01 13:35 | disposition home or self-care (01) ==
LOC: CHSIMG 13:35
PROVIDERS: PCP Internal Medicine; Visit Provider Internal Medicine
DX: N17.9 Acute kidney failure, unspecified (principal); R93.1 Abnormal findings on diagnostic imaging of heart and coronary circulation
CPT/HCPCS: 93306

== ENCOUNTER 2023-08-23 19:24 | Emergency (ER) | payer OTHER, SELFPAY ==
[2023-08-23] VITALS (33 sets, daily range): BP systolic 126–185; BP diastolic 68–93; PULSE 50–74; RESP 10–22; TEMP 36.6; O2SAT 99–100
--- NOTE | ~2023-08-23 | CT_ITS ---
EXAMINATION: CTA chest abdomen pelvis DATE: 08/23/2023 20:51 INDICATION: Epigastric abdominal pain. TECHNIQUE: Computed tomographic angiography (CTA) of the chest and abdomen was performed with 100 mL Omnipaque-350 intravenous contrast. Automated exposure control and iterative reconstruction technique were employed. The dose-length product was 473.09 mGy-cm. Maximum intensity projection 3D-reconstruc tions of the aorta and other arteries were constructed by the technologist on a separate workstation. COMPARISON: None. FINDINGS: CHEST CTA: There is mild scarring at the lung apices. No pleural effusion. The heart size is normal. No pericard ial effusion. Thoracic aorta is normal. There is mild thoracic spondylosis. ABDOMEN CTA: The liver, gallbladder, spleen, pancreas, adrenal glands, and kidneys are normal. There are no dilate d loops of bowel. There are changes of appendectomy. There are no pathologically enlarged lymph nodes . There is no free intraperitoneal fluid. Abdominal aorta is normal. There is no significant stenosis of celiac axis, superior mesenteric artery, the renal arteries, or inferior mesenteric artery. There is mild lumbar spondylosis. IMPRESSION: 1. No etiology for the patient's symptoms. Reviewed, dictated and finalized at location E. ORIAL ASSISTANT
--- NOTE | 2023-08-23 19:33 | ED.ABDPAIN ---
HPI - Abdominal Pain General Chief Complaint: Abdominal Pain Stated Complaint: upper belly pain Time Seen by Provider: 08/23/23 19:27 History of Present Illness HPI narrative: Patient is a 62 year old female with history of HTN here with nausea, abdominal pain and chest pain. Patient notes that for the last week she has had abdominal fullness after eating. She notes that she gets this discomfort after each meal. Over the last 3 days she has gotten increasingly more nauseous. This is also usually occurring after meals. She notes that since 5:30 AM today she has had constant epigastric abdominal pain and lower mid chest pain. She notes it is sharp, cramping and radiates into her shoulders and her back. She attempted to do various activities around her house today and take several antacids without any relief of the symptoms. She denies prior cardiac history, no prior stress test or cardiac cath. She denies recent travel. No recent changes in food. No fever, chills, cough, congestion. She denies leg swelling or shortness of breath. No sick contacts. She is normally very active and walks and does yoga daily. She has seen a complex commercial litigation paralegal once recently and had an EKG, ECHO and holter monitor performed which she believes was normal. No prior endoscopy or colonoscopies. No prior abdominal surgeries. Normal bowel movements, 2 of which occurred today, formed stools, no diarrhea. Related Data Home Medications Medication Instructions Recorded Confirmed alendronate 70 mg tablet 70 mg PO DAILY 08/23/23 08/23/23 losartan 25 mg tablet 25 mg PO BID 08/23/23 08/23/23 venlafaxine 37.5 mg 37.5 mg PO DAILY 08/23/23 08/23/23 capsule,extended release 24 hr venlafaxine 75 mg capsule,extended 75 mg PO DAILY 08/23/23 08/23/23 release 24 hr verapamil 120 mg tablet,extended 120 mg PO DAILY 08/23/23 08/23/23 release Allergies Allergy/AdvReac Type Severity Reaction Status Date / Time hydrocodone Allergy Unknown Verified 09/29/08 12:28 NONE Allergy Unknown Uncoded 12/08/02 12:54 CODEINE (Generic Allergy) Allergy Y Uncoded 12/08/02 13:52 Review of Systems Review of Systems: All systems reviewed & are unremarkable except as noted in HPI and below PMFSH Past Medical History Medical History No significant past medical history Surgical History Surgical History H/O hand surgery Family History Family History (Updated 09/20/20 @ 06:19 by Axel Valente MD) Mother Hypertension Social History Social History (Updated 07/07/22 @ 01:39 by Axel Moses MD) Smoking status: Former smoker Additional smoking assessment comments: sometimes smokes when with friends who do Alcohol use details: social at times Exam Narrative: GENERAL: Well-appearing, well-nourished, and in no acute distress. HEAD: Normocephalic, atraumatic. EYES: PERRLA and EOMI. ENT: Nares clear. Mucous membranes moist. NECK: Supple. CHEST: Clear to auscultation. No respiratory distress. Tenderness over the area of the manubrium. HEART: Regular rate and rhythm. Normal peripheral pulses. ABDOMEN: Soft, epigastric tenderness, mild RUQ tenderness, negative Norris sign, no rebound or guarding, nondistended. EXTREMITIES: Normal range of motion. No lower extremity edema. No calf tenderness. SKIN: Warm, dry, no rash. NEURO: No focal deficits. Alert and oriented x3. PSYCH: Normal mood and affect. Course Course Emergency Course: Chart review performed. Patient here with nausea and concern for gallbladder attack. Triage vitals normal. ECHO on 04/01/23 reviewed. EF 60-65%. Patient seen and evaluated, non toxic appearing. Alert, oriented. Differentials include gastritis, esophagitis, ACS, less likely biliary pathology. Although less likely, context of pain above and below the diaphragm, will additionally do CTA dissection study to ensure no aortic pathology causing
--- NOTE | 2023-08-23 19:42 | ECG_ITS ---
Measurements Intervals Jackson Rate: 61 P: 68 VA: 204 QRS: 74 QRSD: 82 T: 61 QT: 429 QTc: 432 Interpretive Statements SINUS RHYTHM BORDERLINE R WAVE PROGRESSION, ANTERIOR LEADS BORDERLINE ECG BASELINE ARTIFACT- II, III, AVF COMPARED TO ECG 01/16/2023 07:56:59 SINUS RHYTHM NOW PRESENT Electronically Signed On 08-24-2023 7:38:55 PIGMENT PRESSER by Lyndon Smith D.O.
[2023-08-23] MEDS: ASPIRIN 81 MG CHEWABLE TABLET 324 MG PO (19:57)
[2023-08-23] MEDS: PANTOPRAZOLE SODIUM IV 40 MG VIAL IV PUSH (19:59)
[2023-08-23] MEDS: ONDANSETRON INJ 4 MG/2 ML VIAL IV PUSH (19:59)
[2023-08-23] MEDS: NITROGLYCERIN SL 0.4 MG TABLET SUBLINGUAL ×2 (20:03→20:19)
[2023-08-23 20:11] LABS: Basophils Absolute Auto 0.04 K/mm3 (0.00-0.10); Basophils Percent Auto 0.7 % (0.0-1.0); Eosinophils Absolute Auto 0.15 K/mm3 (0.02-0.50); Eosinophils Percent Auto 2.6 % (1.0-6.0); Hematocrit 35.4 % (35.0-49.0); Hemoglobin 11.9 g/dL (12.0-15.0); Immature Granulocyte Absolute 0.01 K/mm3 (0.00-0.00); Immature Granulocyte Percent A 0.2 % (0.0-0.0); Lymphocytes Absolute Auto 2.19 K/mm3 (1.10-4.50); Lymphocytes Percent Auto 37.2 % (18.0-42.0); Mean Corpuscular HGB Conc 33.6 g/dL (32.0-36.0); Mean Corpuscular Hemoglobin 30.4 pg (27.0-31.0); Mean Corpuscular Volume 90.3 fL (78.0-102.0); Mean Platelet Volume 11.1 fl (9.2-11.8); Monocytes Absolute Auto 0.65 K/mm3 (0.10-0.90); Monocytes Percent Auto 11.1 % (2.0-11.0); Neutrophils Absolute Auto 2.8 K/mm3 (1.7-7.2); Neutrophils Percent Auto 48.2 % (50.0-70.0); Platelet Count Result 249 K/mm3 (150-420); Red Blood Count 3.92 M/mm3 (4.20-5.40); Red Cell Distribution Width 12.9 % (11.6-14.4); White Blood Count 5.9 K/mm3 (4.8-10.8)
[2023-08-23 20:16] LABS: Appearance Urine Clear (Clear); Bilirubin Urine Negative (Negative); Blood Urine Negative (Negative); Color Urine Light Yellow (Yellow); Glucose Urine UA Negative (Negative); Ketones Urine Negative (Negative); Leukocyte Esterase Ur Negative LEU/UL (Negative); Nitrate Urine Negative (Negative); Protein Urine Negative (Negative); Urobilinogen Urine 0.2 mg/dL (0.2-1.0); pH Urine 6.5 (5.0-8.0)
[2023-08-23 20:17] LABS: Add Urine Microscopic? NO
[2023-08-23 20:25] LABS: Partial Thromboplastin Time 24.4 SEC (23.90-30.70); Prothrombin Time 10.7 Seconds (9.50-12.10)
[2023-08-23 20:35] LABS: Alanine Aminotransferase 355 U/L (14-59); Albumin Level 3.9 g/dL (3.4-5.0); Alkaline Phosphatase 114 U/L (46-116); Anion Gap 11 mmol/L (8-16); Aspartate Amino Transferase 232 U/L (15-37); Bilirubin,Total 0.3 mg/dL (0.00-1.00); Blood Urea Nitrogen 26 mg/dL (7-18); Calcium 8.9 mg/dL (8.5-10.1); Carbon Dioxide 26 mmol/L (21-32); Chloride 104 mmol/L (98-108); Estimated CRCL calculation 46 ml/min; Estimated Glomerular Filt Rate 52; Glucose 106 mg/dL (70-99); Lipase 46 U/L (16-77); NT Pro B Type Natriuretic Pept 66 pg/mL (0-125); Osmolality Calculated 296 mOsm/kg (285-295); Potassium 4.4 mmol/L (3.5-5.1); Sodium 141 mmol/L (136-145); Troponin I 4.7 ng/L (0.00-60.4)
[2023-08-23 20:51] LABS: Influenza A QL RT-PCR Negative (Negative); Influenza B QL RT-PCR Negative (Negative); RSV RNA, RT-PCR Negative (Negative); SARS-CoV-2 RNA PCR Negative (Negative)
[2023-08-23] MEDS: MAG HYDROX/ALUMINUM HYD/SIMETH 30 ML, PHENobarb/HYOSCY/ATROPINE/SCOP 32.4 MG, LIDOCAINE... PO (21:12)
[2023-08-23] MEDS: KETOROLAC 15 MG/ML VIAL (*BKC) IV PUSH (23:09)
== END 2023-08-23 23:33 | disposition home or self-care (01) ==
PROVIDERS: Emergency Provider Student in an Organized Health Care Education/Training Program; PCP Internal Medicine
DX: R10.13 Epigastric pain (principal); R07.89 Other chest pain; R74.01 Elevation of levels of liver transaminase levels; I10 Essential (primary) hypertension; Z79.899 Other long term (current) drug therapy; Z87.891 Personal history of nicotine dependence; Z20.822 Contact with and (suspected) exposure to COVID-19
CPT/HCPCS: 36415; 71275; 74174; 80053; 81003; 83690; 83880; 84484; 85025; 85610; 85730; 87637; 93005; 96374; 96375; 99284; A9270; C9113; J1885; J2405; Q9967

== ENCOUNTER 2023-11-28 07:22 | Outpatient (CLI) | payer OTHER, SELFPAY ==
--- NOTE | ~2023-11-28 | US_ITS ---
US right upper quadrant INDICATION: Biliary colic PROCEDURE: Realtime right upper abdominal ultrasound. COMPARISON: No prior studies for comparison. FINDINGS: The pancreas is normal without focal mass or pancreatic ductal dilation. Liver echotexture is normal without focal mass or intrahepatic biliary dilatation. There is normal directional flow i n the portal vein. The gallbladder is normal without stones, gallbladder wall thickening or pericholecystic fluid. Comm on bile duct measures 3 mm. No sonographic Norris's sign. IMPRESSION: 1: Normal limited abdominal ultrasound. Reviewed, dictated and finalized at location B.
[2023-11-28 08:02] LABS: Basophils Absolute Auto 0.04 K/mm3 (0.00-0.10); Basophils Percent Auto 0.6 % (0.0-1.0); Eosinophils Absolute Auto 0.15 K/mm3 (0.02-0.50); Eosinophils Percent Auto 2.1 % (1.0-6.0); Hematocrit 38.2 % (35.0-49.0); Hemoglobin 12.5 g/dL (12.0-15.0); Immature Granulocyte Absolute 0.02 K/mm3 (0.00-0.00); Immature Granulocyte Percent A 0.3 % (0.0-0.0); Lymphocytes Absolute Auto 1.83 K/mm3 (1.10-4.50); Lymphocytes Percent Auto 25.7 % (18.0-42.0); Mean Corpuscular HGB Conc 32.7 g/dL (32-36); Mean Corpuscular Hemoglobin 30.3 pg (27.0-31.0); Mean Corpuscular Volume 92.7 fL (78.0-102.0); Mean Platelet Volume 11.1 fl (9.2-11.8); Monocytes Absolute Auto 0.51 K/mm3 (0.10-0.90); Monocytes Percent Auto 7.2 % (2.0-11.0); Neutrophils Absolute Auto 4.57 K/mm3 (1.70-7.20); Neutrophils Percent Auto 64.1 % (50.0-70.0); Platelet Count Result 249 K/mm3 (150-420); Red Blood Count 4.12 M/mm3 (4.20-5.40); Red Cell Distribution Width 12.6 % (11.6-14.4); White Blood Count 7.1 K/mm3 (4.8-10.8)
[2023-11-28 08:09] LABS: Appearance Urine Clear (Clear); Bilirubin Urine Negative (Negative); Blood Urine Negative (Negative); Color Urine Yellow (Yellow); Glucose Urine UA Negative (Negative); Ketones Urine Negative (Negative); Leukocyte Esterase Ur Negative (Negative); Nitrate Urine Negative (Negative); Protein Urine Negative (Negative); Specific Grav Ur >= 1.030 (1.010-1.020); Urobilinogen Urine 0.2 mg/dL (0.2-1.0); pH Urine 5.5 (5.0-8.0)
[2023-11-28 08:17] LABS: Add Urine Microscopic? NO
[2023-11-28 08:57] LABS: Alanine Aminotransferase 32 U/L (14-59); Albumin Level 4.1 g/dL (3.4-5.0); Alkaline Phosphatase 42 U/L (46-116); Anion Gap 13 mmol/L (4-12); Aspartate Amino Transferase 22 U/L (15-37); Bilirubin,Total 0.3 mg/dL (0.00-1.00); Blood Urea Nitrogen 24 mg/dL (7-18); Calcium 9.1 mg/dL (8.5-10.1); Carbon Dioxide 25 mmol/L (21-32); Chloride 105 mmol/L (98-108); Cholesterol 271 mg/dL (0-200); Estimated Glomerular Filt Rate 53; Glucose 107 mg/dL (70-99); HDL Direct 69 mg/dL (40-60); LDL Cholesterol Calculated 177 mg/dL (<130); Osmolality Calculated 300 mOsm/kg (285-295); Potassium 4.4 mmol/L (3.5-5.1); Sodium 143 mmol/L (136-145); Thyroid Stimulating Hormone 3.01 uIU/mL (0.36-3.74); Total Protein 7.1 g/dL (6.4-8.2); Triglycerides 124 mg/dL (0-150)
[2023-11-28 14:06] LABS: Hemoglobin A1C 5.2 % (<5.7)
== END 2023-11-28 07:23 | disposition home or self-care (01) ==
LOC: CHSIMG 07:24
PROVIDERS: PCP Internal Medicine; Visit Provider Internal Medicine
DX: I10 Essential (primary) hypertension (principal); R10.84 Generalized abdominal pain; R73.09 Other abnormal glucose
CPT/HCPCS: 36415; 76705; 80053; 80061; 81003; 83036; 84443; 85025

== ENCOUNTER 2023-12-23 08:49 | Outpatient (CLI) | payer OTHER, SELFPAY ==
--- NOTE | ~2023-12-23 | NM_ITS ---
EXAMINATION: NM hepatobiliary w pharm DATE: 12/23/2023 10:57 INDICATION: Biliary dyskinesis. Abdominal pain in August COMPARISON: None. TECHNIQUE: 6.0 mCi Tc-99m mebrofenin (Choletec) was administered intravenously. Scintigraphic images of the abdomen were obtained for one hour. 1.4 mcg sincalide (Kinevac) was administered by slow intr avenous infusion, and imaging was continued for 30 minutes. Gallbladder ejection fraction was calcula geeta by the technologist. FINDINGS: There is normal clearance of radiotracer from the blood pool. There is homogeneous tracer uptake by t he liver. Activity progresses to the gallbladder and bowel. The gallbladder ejection fraction (GBEF) is 89% (normal 10-90%, but most patient with gallbladder dysfunction have GBEF < 35% which does over lap with the normal range). IMPRESSION: 1. Normal hepatobiliary scan. Reviewed, dictated and finalized at location A.
== END 2023-12-23 08:50 | disposition home or self-care (01) ==
LOC: CHSIMG 08:50
PROVIDERS: PCP Internal Medicine; Visit Provider Internal Medicine
DX: K82.8 Other specified diseases of gallbladder (principal)
CPT/HCPCS: 78227; A9537; J2805

== ENCOUNTER 2024-01-29 14:57 | Outpatient (CLI) | payer OTHER, SELFPAY ==
--- NOTE | ~2024-01-29 | XR_ITS ---
EXAMINATION:XR_CERV2-3V_CR, XR lumbar spine 2-3V, XR thoracic spine 2V DATE: 01/29/2024 15:18 INDICATION: Chronic neck and back pain TECHNIQUE: 1. AP, lateral and odontoid views of the cervical spine are provided. 2. AP, lateral and lateral swimmer's views of the thoracic spine were obtained. 3. AP, lateral and coned-down lateral lumbosacral views of the lumbar spine were obtained. COMPARISON: CT chest, abdomen and pelvis dated 08/23/2023 FINDINGS: Cervical spine Alignment is normal. Odontoid is intact. Normal atlantoaxial interval. Vertebral body heights are no rmal. Mild disc height loss at C4-C5. Remaining cervical disc spaces are normal. Chronic nonunited fr actures there is a developmentally unfused apophyseal centers of the spinous processes of C7 and T1. Multilevel moderate to severe bilateral cervical facet osteoarthritis. There is also multilevel mild to moderate cervical uncovertebral osteoarthritis. Prevertebral soft tissues are normal. Thoracic spine: 10 degrees upper thoracic levocurvature. Sagittal alignment is normal. Vertebral body heights are nor mal. Moderate disc height loss at T3-T4 through and T6-T7 with mild disc height loss from T1-T2 throu gh T11-T12. Visualized portion of the lungs are clear with no pleural effusion or pneumothorax. Cardi omediastinal silhouette is normal. Lumbar spine: 5 degrees lumbar dextrocurvature. Sagittal alignment is normal. Vertebral body heights are normal wit h small Schmorl's node along the superior endplate of L2. Mild disc height loss at L3-L4 and L5-S1. M ild to moderate lower lumbar predominant spondylosis. Surgical clips in the right pelvis likely relat ed to prior appendectomy. IMPRESSION: 1. Moderate thoracic and mild cervical and lumbar spondylosis. Reviewed, dictated and finalized at location A. IMPRESSION: 1. Moderate thoracic and mild cervical and lumbar spondylosis. IMPRESSION: 1. Moderate thoracic and mild cervical and lumbar spondylosis.
== END 2024-01-29 14:58 | disposition home or self-care (01) ==
LOC: CHSLAB 14:59
PROVIDERS: PCP Internal Medicine; Visit Provider Nurse Practitioner Family
DX: M54.50 Low back pain, unspecified (principal); M54.2 Cervicalgia; R42 Dizziness and giddiness; M47.814 Spondylosis without myelopathy or radiculopathy, thoracic region; M43.06 Spondylolysis, lumbar region; M43.02 Spondylolysis, cervical region
CPT/HCPCS: 72040; 72070; 72100

== ENCOUNTER 2024-02-13 07:31 | Outpatient (CLI) | payer OTHER, SELFPAY ==
--- NOTE | ~2024-02-13 | MM_ITS ---
EXAMINATION: MM screening naomi BI w victor hugo HISTORY: Screening TECHNIQUE: Craniocaudal and mediolateral oblique 3-D tomosynthesis images were obtained and synthetic 2-D images were generated. CAD analysis was submitted and interpreted. COMPARISON: Comparison to multiple prior studies sequentially, with oldest reviewed study dated 08/03. BREAST PARENCHYMAL COMPOSITION: Dense: The breasts are heterogeneously dense, which may obscure small masses FINDINGS: There is a new focal asymmetry laterally in the right breast, middle third, on CC view. The left breast is stable without evidence for malignancy. IMPRESSION: 1. New right breast asymmetry. 2. Additional mammographic views and possible breast ultrasound are recommended. BI-RADS Category 0: Incomplete: Needs additional imaging evaluation. Reviewed, dictated and finalized at location B. IMPRESSION: 1. New right breast asymmetry. 2. Additional mammographic views and possible breast ultrasound are recommended . BI-RADS Category 0: Incomplete: Needs additional imaging evaluation.
== END 2024-02-13 07:32 | disposition home or self-care (01) ==
LOC: CHSIMG 07:32
PROVIDERS: PCP Internal Medicine; Visit Provider Internal Medicine
DX: Z12.31 Encounter for screening mammogram for malignant neoplasm of breast (principal); R92.8 Other abnormal and inconclusive findings on diagnostic imaging of breast
CPT/HCPCS: 77063; 77067

== ENCOUNTER 2024-02-24 09:33 | Outpatient (CLI) | payer OTHER, SELFPAY ==
--- NOTE | ~2024-02-24 | MM_ITS ---
EXAMINATION: MM diagnostic naomi RT w victor hugo HISTORY: Right breast asymmetry TECHNIQUE: Additional 3-D tomosynthesis spot compression images of the right breast were performed an d synthetic 2-D images were generated. CAD analysis was submitted and interpreted. COMPARISON: 02/13/2024, 02/06/2023 BREAST PARENCHYMAL COMPOSITION:Dense: The breasts are heterogeneously dense, which may obscure small masses. FINDINGS: The asymmetric density in the right breast effaces with spot compression. No persistent mas s lesion or distortion seen. IMPRESSION: No mammographic evidence for malignancy. BI-RADS Category 1: Negative Reviewed, dictated and finalized at location .
== END 2024-02-24 09:34 | disposition home or self-care (01) ==
LOC: CHSIMG 09:36
PROVIDERS: PCP Internal Medicine; Visit Provider Internal Medicine
DX: R92.8 Other abnormal and inconclusive findings on diagnostic imaging of breast (principal)
CPT/HCPCS: 77061; 77065; G0279

== ENCOUNTER 2024-02-29 09:47 | Outpatient (CLI) | payer OTHER, SELFPAY ==
--- NOTE | ~2024-02-29 | MR_ITS ---
EXAMINATION: MR thoracic spine wo con DATE: 03/02/2024 10:27 INDICATION: Low back pain. Thoracic back pain. TECHNIQUE: Magnetic resonance imaging (MRI) of the thoracic spine was performed without intravenous c ontrast. COMPARISON: Thoracic spine radiographs 01/29/2024 FINDINGS: There is 6 degrees dextrocurvature of thoracic spine. There is mild chronic anterior wedgin g of T11 and T12 vertebral bodies. There is moderately decreased disc height at T2-T3 and T3-T4 and m ildly decreased disc height from T4-T5 through T10-T11. There are Schmorl's nodes at T11-T12 and L1-L 2. There is multilevel facet joint osteoarthritis, severe on the left at T4-T5. There is multilevel m ild neural foraminal stenosis bilaterally. At T2-T3, there is a right central extrusion with mild armando tral canal stenosis and ventral indentation of the spinal cord. At T3-T4, there is a right central pr otrusion with mild central canal stenosis and ventral indentation of the spinal cord. At T4-T5, there is a central extrusion with mild central canal stenosis. At T5-T6, there is a central extrusion with mild central canal stenosis and ventral indentation of the spinal cord. At T7-T8, there is a left ce ntral extrusion with mild central canal stenosis. At T8-T9, there is a central extrusion with mild ce ntral canal stenosis. At T9-T10, there is a left central extrusion with mild central canal stenosis. At T10-T11, there is a left foraminal extrusion with mild left neural foraminal stenosis. At T11-T12, there is a central protrusion with mild central canal stenosis. The spinal cord signal intensity is normal. The conus medullaris is at L1-L2. IMPRESSION: 1. Moderate thoracic spondylosis. Reviewed, dictated and finalized at location A.
--- NOTE | ~2024-02-29 | MR_ITS ---
EXAMINATION: MR lumbar spine wo con DATE: 03/02/2024 10:27 INDICATION: Low back pain. TECHNIQUE: Magnetic resonance imaging (MRI) of the lumbar spine was performed without intravenous con trast. Sequences included sagittal T2-weighted FSE, sagittal T2-weighted FS FSE, sagittal T1-weighted FSE, and axial T2-weighted FSE. COMPARISON: Lumbar spine MRI 12/30/2007 FINDINGS: There is 5 degrees dextrocurvature of lumbar spine. Vertebral body heights are normal. Ther e is moderately decreased disc height at L5-S1. The distal spinal cord signal intensity is normal. Th e conus medullaris is at L1-L2. The following disc levels are specifically discussed: L1-L2: There is a central protrusion. There is mild bilateral facet joint osteoarthritis. There is no neural foraminal stenosis. There is mild central canal stenosis. L2-L3: The disc is bulging. There is moderate right and mild left facet joint osteoarthritis. There i s mild bilateral neural foraminal stenosis. There is mild central canal stenosis. L3-L4: The disc is bulging. There is severe bilateral facet joint osteoarthritis. There is mild bilat eral neural foraminal stenosis. There is mild central canal stenosis. L4-L5: The disc is bulging and has an annular fissure. There is mild right and severe left facet join t osteoarthritis. There is mild bilateral neural foraminal stenosis. There is mild central canal sten osis. L5-S1: The disc is bulging. There is mild bilateral facet joint osteoarthritis. There is mild bilater al neural foraminal stenosis. There is mild central canal stenosis. IMPRESSION: 1. Mild lumbar spondylosis, worsened from 12/30/2007. Reviewed, dictated and finalized at location A.
== END 2024-02-29 09:48 | disposition home or self-care (01) ==
LOC: CHSIMG 09:48
PROVIDERS: PCP Physician Assistant; Visit Provider Physician Assistant
DX: M54.50 Low back pain, unspecified (principal); M54.16 Radiculopathy, lumbar region; M43.04 Spondylolysis, thoracic region; M43.06 Spondylolysis, lumbar region
CPT/HCPCS: 72146; 72148

== ENCOUNTER 2024-03-02 14:37 | Outpatient (RCR) | payer OTHER, SELFPAY ==
--- NOTE | 2024-03-02 15:33 | PTOPEVAL1 ---
Assessment and note entered by Ray Boss Evaluation Information Assessment Status Evaluation ICD-10 Condition Codes (PT) M54.6,Pain in low back M54.50 Onset 02/25/24 Subjective Information Pt. reports that over the year she has developed pain in the middle back and lower back. 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 She states that she has been using Asper Cream and occasional Advil. She reports that pain will wake her at night. She reports that she has hx of neck fx that happened while in high school. 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 Reported Pain Level Pain Score 5: Self Report Assessment PT Clinical Summary Pt. is a 63 year old female who enters the clinic with a diagnosis of lumbar and thoracic pain. Plan of Care Interventions Electrical Stimulation,Hot Pack/Cold Pack,Manual Therapy,Mechanical Traction,Neuro Re-education, Patient/Caregiver Educati,Therapeutic Activities, Therapeutic Exercise PT Services Indicated Yes Treatment Frequency and 2x/week x 12 visits Duration These treatments will address the objective and functional deficits as defined above. The patient will be advanced safely and appropriately in order for the patient to progress towards his/her prior level of function. Additional exercises will be introduced and as well as a comprehensive home exercise program upon discharge, if needed, ?to ensure carryover of functional gains achieved in the clinic. This treatment plan has been reviewed and agreement upon by the patient.
--- NOTE | 2024-03-02 15:34 | OPREHPOC ---
Outpatient Therapy Plan of Care This is a Multidisciplinary Plan of Care that may contain components documented by all disciplines (PT, OT, and ST.) PT Problem 1 PT Problem #1 Knowledge Deficit PT Goal 1 Goal / Goal Update Pt. will be independent with a HEP addressing core strength and trunk mobility. Target Visit 2 PT Problem 2 PT Problem #2 Impaired Functional Mobil PT Goal 1 Goal / Goal Update 1)Pt. will demonstrate safe lifting mechanics with floor to waist lifts of 20# object for 10 reps 2)Pt. will present with less than 25% limitation on the Oswestry indicating improved overall functional mobility. 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 Target Visit 12 PT Problem 3 PT Problem #3 Impaired Strength PT Goal 1 Goal / Goal Update 1)Pt. will present with 5/5 hip abduction and extension strength 2)Pt. will present with good+ upper and lower abdominal strength 3)Pt. will improve core and l.e. strength to improve stability with prolonged standing activities to decrease pain Target Visit 12 PT Problem 4 PT Problem #4 Pain PT Goal 1 Goal / Goal Update 1)Pt. will report pain levels at 5/10 at worst over a 2 week period. Target Visit 12
--- NOTE | 2024-03-12 09:59 | PCPTNOTE ---
Cancelled session due to flat tired. Will call back later to reschedule.
--- NOTE | 2024-04-08 08:12 | OPREHPOC ---
Outpatient Therapy Plan of Care This is a Multidisciplinary Plan of Care that may contain components documented by all disciplines (PT, OT, and ST.) PT Problem 1 PT Problem #1 Knowledge Deficit PT Goal 1 Goal / Goal Update Pt. will be independent with a HEP addressing core strength and trunk mobility. Target Visit 2 Progress Met PT Problem 2 PT Problem #2 Impaired Functional Mobil PT Goal 1 Goal / Goal Update 1)Pt. will demonstrate safe lifting mechanics with floor to waist lifts of 20# object for 10 reps 2)Pt. will present with less than 25% limitation on the Oswestry indicating improved overall functional mobility. 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 Target Visit 12 PT Goal 2 Goal / Goal Update Progress towards-continue PT Problem 3 PT Problem #3 Impaired Strength PT Goal 1 Goal / Goal Update 1)Pt. will present with 5/5 hip abduction and extension strength 2)Pt. will present with good+ upper and lower abdominal strength 3)Pt. will improve core and l.e. strength to improve stability with prolonged standing activities to decrease pain Target Visit 12 PT Goal 2 Goal / Goal Update Progress towards-continue PT Problem 4 PT Problem #4 Pain PT Goal 1 Goal / Goal Update 1)Pt. will report pain levels at 5/10 at worst over a 2 week period. Target Visit 12 Progress Not Met
--- NOTE | 2024-04-08 08:12 | PTOPPROG ---
Assessment and note entered by Marietta Pierre, PT Evaluation Information Assessment Status Progress ICD-10 Condition Codes (PT) M54.6,Pain in low back M54.50 Onset 02/25/24 Subjective Information Danelle Bo reports her back pain is elevated today in her mid back for unknown reasons. She reports she did not clean yesterday and has not been on her motorcycle lately and that is usually what makes her pain worse. She does feel she is improving overall but still notes weakness and stiffness. She also has a facet injection on . Assessment PT Clinical Summary Danelle Bo has completed 10 skilled PT visits for thoracic and lumbar pain. She is reporting overall improvements in pain however, she still gets increased pain with excessive cleaning and riding her motorcycle. 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 She is progressing toward her goals of improving posture, improving strength, improving spinal mobility, and demonstrating good body mechanics with functional activities. She continues to have tenderness in the thoracic spine , decreased strength in the core and hips, and pain with daily activities. She will continue to benefit from skilled PT to further address these limitations. Plan of Care Interventions Electrical Stimulation,Hot Pack/Cold Pack,Manual Therapy,Patient/Caregiver Educati,Therapeutic Exercise PT Services Indicated Yes Treatment Frequency and Continue skilled per original POC for 2 additional Duration visits These treatments will address the objective and functional deficits as defined above. The patient will be advanced safely and appropriately in order for the patient to progress towards his/her prior level of function. Additional exercises will be introduced and as well as a comprehensive home exercise program upon discharge, if needed, ?to ensure carryover of functional gains achieved in the clinic. This treatment plan has been reviewed and agreement upon by the patient.
--- NOTE | 2024-04-13 07:26 | PCPTNOTE ---
Danelle called in to cancel her appointment this morning. Ray Boss, MPT
--- NOTE | 2024-04-20 07:56 | PTOPDC ---
Assessment and note entered by Ray [facility] Evaluation Information Assessment Status Discharge ICD-10 Condition Codes (PT) M54.6,Pain in low back M54.50 Onset 02/25/24 Subjective Information Pt. reports that she is slightly improved. She reports that pain is still present and worsens with activity, making her work difficult. She states that exercise helps, but no enough. 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 She will be undergoing injection tomorrow. Reported Pain Level Pain Score 7,5: Self Report Assessment PT Clinical Summary Pt. has attended a total of 12 treatment sessions. Treatment has focused on core strength, postural awareness and mobility. she demonstrates slight improvements in Oswestry score and trunk mobility and strength. At this time pt. continues to provide reports of pain. She will continue with exercise and is ready for discharge at this time. Plan of Care PT Services Indicated No
== END 2024-04-20 13:06 | disposition home or self-care (01) ==
LOC: CHSPT 14:37
PROVIDERS: Visit Provider Physician Assistant
DX: M54.50 Low back pain, unspecified (principal); M54.6 Pain in thoracic spine
CPT/HCPCS: 97014; 97110; 97140; 97161; G0283

== ENCOUNTER 2024-07-01 08:54 | Outpatient (CLI) | payer OTHER, SELFPAY ==
[2024-07-01 09:06] LABS: Basophils Absolute Auto 0.06 K/mm3 (0.00-0.10); Eosinophils Absolute Auto 0.12 K/mm3 (0.02-0.50); Hematocrit 37.9 % (35.0-49.0); Hemoglobin 12.5 g/dL (12.0-15.0); Immature Granulocyte Absolute 0.02 K/mm3 (0.00-0.00); Immature Granulocyte Percent A 0.3 % (0.0-0.0); Lymphocytes Absolute Auto 2.44 K/mm3 (1.10-4.50); Lymphocytes Percent Auto 41.4 % (18.0-42.0); Mean Corpuscular Volume 90.9 fL (78.0-102.0); Mean Platelet Volume 10.4 fl (9.2-11.8); Monocytes Absolute Auto 0.53 K/mm3 (0.10-0.90); Neutrophils Absolute Auto 2.72 K/mm3 (1.70-7.20); Neutrophils Percent Auto 46.3 % (50.0-70.0); Platelet Count Result 303 K/mm3 (150-420); Red Blood Count 4.17 M/mm3 (4.20-5.40); Red Cell Distribution Width 12.3 % (11.6-14.4); White Blood Count 5.9 K/mm3 (4.8-10.8)
[2024-07-01 09:08] LABS: Add Urine Microscopic? NO; Appearance Urine Clear (Clear); Bilirubin Urine Negative (Negative); Blood Urine Negative (Negative); Color Urine Light Yellow (Yellow); Glucose Urine UA Negative (Negative); Ketones Urine Negative (Negative); Leukocyte Esterase Ur Negative (Negative); Nitrate Urine Negative (Negative); Protein Urine Negative (Negative); Specific Grav Ur >= 1.030 (1.010-1.020); Urobilinogen Urine 0.2 mg/dL (0.2-1.0)
[2024-07-01 09:52] LABS: Alanine Aminotransferase 36 U/L (14-59); Alkaline Phosphatase 43 U/L (46-116); Anion Gap 8 mmol/L (4-12); Aspartate Amino Transferase 15 U/L (15-37); Bilirubin,Total 0.3 mg/dL (0.00-1.00); Blood Urea Nitrogen 25 mg/dL (7-18); Calcium 8.9 mg/dL (8.5-10.1); Carbon Dioxide 29 mmol/L (21-32); Chloride 103 mmol/L (98-108); Cholesterol 274 mg/dL (0-200); Estimated Glomerular Filt Rate 45; Glucose 93 mg/dL (70-99); HDL Direct 68 mg/dL (40-60); LDL Cholesterol Calculated 179 mg/dL (<130); Osmolality Calculated 294 mOsm/kg (285-295); Potassium 4.7 mmol/L (3.5-5.1); Sodium 140 mmol/L (136-145); Total Protein 6.7 g/dL (6.4-8.2); Triglycerides 134 mg/dL (0-150)
[2024-07-01 09:59] LABS: CRP < 0.5 mg/dL (0.0-0.9)
== END 2024-07-01 08:55 | disposition home or self-care (01) ==
LOC: CHSLAB 08:56
PROVIDERS: PCP Internal Medicine; Visit Provider Internal Medicine
DX: I10 Essential (primary) hypertension (principal); M25.50 Pain in unspecified joint; E78.5 Hyperlipidemia, unspecified
CPT/HCPCS: 36415; 80053; 80061; 81003; 84443; 85025; 86140

== ENCOUNTER 2025-02-09 14:06 | Outpatient (CLI) | payer OTHER, SELFPAY ==
--- NOTE | ~2025-02-09 | DEXA_ITS ---
Bone Density Report Name: GENE VILLALBA Age: 64 Sex: Female Ethnicity: White Date of : 1960 Indication: osteopenia; Referring Provider: Vishnu Arellano Study: Bone densitometry was performed. Exam Date: February 09, 2025 Accession number: [id number] Bone Density: Region BMD T-score Z-score Classification AP Spine(L1-L4) 0.945 -0.9 0.6 Normal Femoral Neck (Left) 0.720 -1.2 0.2 Osteopenia Total Hip (Left) 0.884 -0.5 0.6 Normal Femoral Neck (Right) 0.637 -1.9 -0.5 Osteopenia Total Hip (Right) 0.857 -0.7 0.4 Normal Femoral Neck Mean 0.679 -1.5 -0.1 Osteopenia Total Hip Mean 0.870 -0.6 0.5 Normal World Health Organization criteria for BMD impression classify patients as: Normal (T-score at or above -1.0), Osteopenia (T-score between -1.0 and -2.5), or Osteoporosis (T-score at or below -2.5). 10-year Fracture Risk(1): Major Osteoporotic Fracture 9.5% Hip Fracture 1.1% Reported Risk Factors: [place] (), Neck BMD=0.637, BMI=24.3 (1) FRAX(R) Version 3.08. Fracture probability calculated for an untreated patient. Fracture probability may be lower if the patient has received treatment. Previous Exams: Region Exam Age BMD T-score BMD Change BMD Change Date g/cm2 vs Baseline vs Previous AP Spine (L1-L4) 02/09/2025 64 0.945 -0.9 0.009 (0.9%) 0.009 (0.9%) 02/06/2023 62 0.937 -1.0 Total Hip(Left) 02/09/2025 64 0.884 -0.5 0.073 (9.0%)* 0.073 (9.0%)* 02/06/2023 62 0.811 -1.1 Total Hip(Right) 02/09/2025 64 0.857 -0.7 0.049 (6.0%)* 0.049 (6.0%)* 02/06/2023 62 0.808 -1.1 *Denotes significance at 95% confidence level, LSC for AP Spine = 0.022 g/cm2, LSC for Total Hip = 0.027 g/cm2 Clinical Information Provided by Patient: Has used the following medications: Fosamax (i.e. alendronate), Vitamin D, Calcium, multi Patient maximum height was 66 Menopause Age: 54 No regular weight bearing exercise Onset of menses at age 16 Number of children 2 Impression: The patient has low bone mass, based on the Right Femoral Neck T-score. No significant bone loss was observed. Discussion: BONE DENSITY IS LOW AT ONE OR MORE SKELETAL SITES. This patient's lowest T-score is low at one or more skeletal sites. It meets the World Health Organization's (WHO) criteria for ?low bone mass? (T-score between -1.0 and -2.5). The patient's 10-year risk of fracture as calculated by FRAX is less than the threshold where pharmacological therapy is recommended by the National Osteoporosis Foundation (NOF). However, all treatment decisions require clinical judgment and consideration of individual patient factors, including patient preferences, comorbidities, previous drug use, risk factors not captured in the FRAX model (e.g., frailty, falls, vitamin D deficiency, increased bone turnover, interval significant decline in bone density) and possible under or overestimation of fracture risk by FRAX. The patient should follow a healthful lifestyle (good nutrition with adequate calcium and vitamin D, and appropriate weight-bearing exercise). Follow-Up: Consider repeating this study in 2 to 3 years to reassess this patient's status, or sooner if there is some new clinical indication. Reported by: MENDOZA on 02/09/2025 2:30:00 PM. Reviewed, dictated and finalized at location A.
--- OUTSIDE RECORDS SUMMARY | 2025-02-09 09:50 | XMS_ITS | Encounter Summary ---
Author Organization [facility] Healthcare Address [address] [place] [address] Care Team Providers Care Station Engineer Chief Name Role Phone Vishnu Arellano MD Primary Care Provider [phone] Reason for Visit * Reason Comments New Patient Encounter Details Date Type Department Care Team (Late st Contact Info) Description 02/09/2025 9:50 AM CDT Office Visit [facility] [address] [place] [address] Sandrine Lorenz MD [address] [place] [address] Menopausal symptoms (Primary Dx); Postmenopausal atrophic vaginitis; Urgency of urination; Screening for malignant neoplasm of the cervix Social History Tobacco Use Types Packs/Day Years Used Date Smoking Tobacco: Former Cigarettes Tobacco Cessation:Counseling Given: Not Answered Comments No Sex and Gender Information Value Date Recorded Sex Assigned at Not on file 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 Mammogram is scheduled next month in [place]. LMP around age 60. Hot flashes have [...] Use: Not At Risk (12/27/2018) Received from [facility] Frequency of Alcohol Consumption: Never Average [...] v increased risk of blood clots, stroke, [place] and breast cancer. Ri sks increase with [...] documented in this encounter Plan of Treatment Scheduled Orders Name Type Priority Associated Diagnoses [...] 01/18/2025 added in this encounter Care Teams Station Engineer Chief Relationship Specialty Start Date End Date Vishnu Arellano MD PCP - General Internal Medicine 01/24/20 documented as of this encounter
--- OUTSIDE RECORDS SUMMARY | 2025-02-09 13:12 | XMS_ITS | Encounter Summary ---
Author Organization [facility] Healthcare Address [address] [place] [address] Care Team Providers Care Laundry Press Operator Name Role Phone Vishnu Arellano MD Primary Care Provider Encounter Details Date Type Department Care Team (Latest Contact Info) Description 02/09/2025 1:12 PM CDT Hospital Encounter [facility] [address] [place] [phone] Screening for malignant neoplasm of the cervix Social History Tobacco Use Types Packs/Day Years Used Date Smoking Tobacco: Former Cigarettes Comments No Sex and Gender Information Value Date Recorded Sex Assigned at Not on file 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 Gender Identity Female 01/01/2025 6:44 AM CDT Sexual Orientation Not on file Occupation Industry 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 Not on file Not on file Not on file documented as of this encounter Plan of Treatment Scheduled Orders Name Type Priority Associated Diagnoses Order Schedule High Risk HPV DNA Detection with Genotyping (Molecular component) Lab Routine Screening for malignant neoplasm of the cervix Once for 1 Occurrences starting 02/09/2025 until 02/09/2025 Pap and High Risk HPV and Genotyping (Cytology Component) Pathology and Cytology Routine Screening for malignant neoplasm of the cervix Once for 1 Occurrences starting 02/09/2025 until 02/09/2025 documented as of this encounter Visit Diagnoses Diagnosis Screening for malignant neoplasm of the cervix documented in this encounter Care Teams Laundry Press Operator Relationship Specialty Start Date End Date Vishnu Arellano MD PCP - General Internal Medicine 01/24/20 documented as of this encounter
--- OUTSIDE RECORDS SUMMARY | 2025-02-09 14:09 | XMS_ITS | Clinical Summary ---
Author Organization [address] Address [address] [place] [address] Care Team Providers Care Dairy Truck Driver Name Role Phone Vishnu Arellano MD Primary Care Provider Allergies Active Allergy Reactions Criticality Noted Date Comments Codeine Nausea & Vomiting Low 02/09/2025 Medications alendronate (FOSAMAX) 70 mg tablet Take 1 tablet (70 mg total) by mouth every 7 days 01/18/2025 Active losartan (COZAAR) 25 mg tablet Take 1 tablet (25 mg total) by mouth daily 06/18/2023 Active estradiol-noreth indrone 0.5-0.1 mg per tabletIndication s:Menopausal symptoms Take 1 tablet by mouth daily 30 tablet 1 02/09/2025 Active Active Problems Problem Noted Date Diagnosed Date Hypertension 02/09/2025 Osteopenia 02/09/2025 Encounters Date Type Department Care Team Description 02/09/2025 1:12 PM CDT Hospital Encounter [facility] [address] [place] [address] Screening for malignant neoplasm of the cervix 02/09/2025 9:50 AM CDT Office Visit [facility] [address] [place] [address] Sandrine Lorenz MD Menopausal symptoms (Primary Dx); Postmenopausal atrophic vaginitis; Urgency of urination; Screening for malignant neoplasm of the cervix from Last 3 Months Surgical History Surgery Date Site/Laterality Comments HAND SURGERY EXPLORATORY LAPAROTOMY 06/17/1998 - 06/16/1999 concern for right ovarian cyst. 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 Gender Identity Female 01/01/2025 6:44 AM CDT Sexual Orientation Not on file Occupation Industry 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 Not on file Not on file Not on file Obstetrics History Para Term AB IAB SAB Ectopic Multiple Livin g Live Births 3 3 3 2 2 Date Outcome GA Total Labor Labor/2nd/3rd Weight Sex Type Anes PTL Anjana A1 A5 Name Clin 1982 2.41 kg (5 lb 5 oz) F Vaginal Living 1998 0.363 kg (12.8 oz) M Vaginal Demise 2000 2.92 kg (6 lb 7 oz) F Vaginal Living Last Filed Vital Signs Vital Sign Reading Time Taken Comments Blood Pressure 124/80 02/09/2025 9:53 AM CDT Pulse - - Temperature - - Respiratory Rate - - Oxygen Saturation - - Inhaled Oxygen Concentration - - Weight 62.1 kg (137 lb) 02/09/2025 9:53 AM CDT Height 167.6 cm (5' 6) 02/09/2025 9:53 AM CDT Body Mass Index 22.11 02/09/2025 9:53 AM CDT Plan of Treatment Health Maintenance Due Date Last Done Comments Breast Cancer Screening-Mammogram 1962 Cervical Cancer Screening 1962 Colon Cancer Screening-Colonoscopy 1962 Depression Screening 1962 Hepatitis C Screening 1962 DTaP/Tdap/Td Vaccine (1 - Tdap) 1973 Hepatitis B Screening 1980 Regular Well Visit/Exam 18-64 1980 Zoster Vaccine (1 of 2) 2012 Influenza Vaccine (#1) 2025 Pneumococcal vaccine <65 Aged Out No longer eligible based on patient's age to complete this topic Insurance [facility] Care Teams Dairy Truck Driver Relationship Specialty Start Date End Date Vishnu Arellano MD PCP - General Internal Medicine 01/24/20
== END 2025-02-09 14:07 | disposition home or self-care (01) ==
LOC: CHSIMG 14:07
PROVIDERS: PCP Internal Medicine; Visit Provider Internal Medicine
DX: Z78.0 Asymptomatic menopausal state (principal); M85.89 Other specified disorders of bone density and structure, multiple sites
CPT/HCPCS: 77080

== ENCOUNTER 2025-02-10 07:44 | Outpatient (CLI) | payer OTHER, SELFPAY ==
--- OUTSIDE RECORDS SUMMARY | 2025-02-09 09:50 | XMS_ITS | Encounter Summary ---
Author Organization [facility] Healthcare Address [address] [place] [address] Care Team Providers Care Manual Tester Name Role Phone Vishnu Arellano MD Primary Care Provider [phone] Reason for Visit * Reason Comments New Patient Encounter Details Date Type Department Care Team (Late st Contact Info) Description 02/09/2025 9:50 AM CDT Office Visit [facility] [address] [place] [address] Sandrine Lorenz MD [address] [place] [address] Menopausal symptoms (Primary Dx); Postmenopausal atrophic vaginitis; Urgency of urination; Screening for malignant neoplasm of the cervix Social History Tobacco Use Types Packs/Day Years Used Date Smoking Tobacco: Former Cigarettes Tobacco Cessation:Counseling Given: Not Answered Comments No Sex and Gender Information Value Date Recorded Sex Assigned at Not on file 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 Gender Identity Female 01/01/2025 6:44 AM CDT Sexual Orientation Not on file Occupation Industry 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 Not on file Not on file Not on file documented as of this encounter Last Filed Vital Signs Vital Sign Reading Time Taken Comments Blood Pressure 124/80 02/09/2025 9:53 AM CDT Pulse - - Temperature - - Respiratory Rate - - Oxygen Saturation - - Inhaled Oxygen Concentration - - Weight 62.1 kg (137 lb) 02/09/2025 9:53 AM CDT Height 167.6 cm (5' 6) 02/09/2025 9:53 AM CDT Body Mass Index 22.11 02/09/2025 9:53 AM CDT documented in this encounter Ordered Prescriptions Prescription Sig Dispense Quantity Refills Last Filled Start Date End Date estradiol-norethin drone 0.5-0.1 mg per tabletIndications: Menopausal symptoms Take 1 tablet by mouth daily 30 tablet 1 02/09/2025 02/09/2026 documented in this encounter Progress Notes * Sandrine Lorenz MD - 02/09/2025 9:50 AM CDT New patient- office visit Subjective : Dina Bo is a 64 y.o. new patient who presents with menopause concerns. Last Pap 20+ years ago. Denies h/o abnormal. Mammogram is scheduled next month in [place]. LMP around age 60. Hot flashes have been present since around age 55. Symptoms are throughout the day and night, affecting her sleep. She tried Effexor 37.5 mg and then 75 mg with her PCP. It seemed to help for about a month but thenno longer helpful so discontinued. She has also noticed vaginal dryness with intercourse the last 1-2 months. Tried oil-based instead of water-based lubricant, which worked better. No other vaginal complaints. She has urinary urgency with incontinence at times. Average daily fluid intake: 2-3 20-oz [place], lemonade, occasional diet tea or Sprite. Menstrual History: No LMP recorded. Patient is postmenopausal. Sexual History: OB History 3 Para 3 Term 3 AB Living 2 SAB IAB Ectopic Multiple Live Births 2 # Outcome Date GA Labor/2nd Weight Sex Type Anes PTL Lv A1 A5 1 1982 2.41 kg (5 lb 5 oz) F Vaginal Living 2 1998 0.363 kg (12.8 oz) M Vaginal Demise 3 2000 2.92 kg (6 lb 7 oz) F Vaginal Living Past Medical History: Diagnosis Date Hypertension Osteopenia Current Outpatient Medications: alendronate (FOSAMAX) 70 mg tablet, Take 1 tablet (70 mg total) by mouth every 7 days, Disp: , Rfl: losartan (COZAAR) 25 mg tablet, Take 1 tablet (25 mg total) by mouth daily, Disp: , Rfl: estradiol-norethindrone 0.5-0.1 mg per tablet, Take 1 tablet by mouth daily, Disp: 30 tablet, Rfl: 1 Allergies Allergen Reactions Codeine Nausea & Vomiting Family History Problem Relation Age of Onset Hypertension Mother Stroke Maternal Grandmother Stroke Paternal Grandfather Breast cancer Father's Sister Social History Tobacco Use Smoking status: Former Types: Cigarettes Smokeless tobacco: None Substance and Sexual Activity Drug use: Never Sexual activity: Yes Partners: Male Alcohol Use: Not At Risk (12/27/2018) Received from [facility] Frequency of Alcohol Consumption: Never Average Number of Drinks: Not on file Frequency of Binge Drinking: Not on file Review of Systems Constitutional: Positive for diaphoresis and fatigue. Negative for fever and unexpected weight change. HENT: Negative for congestion, hearing loss, nosebleeds, postnasal drip, tinnitus, trouble swallowing and voice change. Eyes: Negative for visual disturbance. Respiratory: Negative for shortness of breath and wheezing. Cardiovascular: Negative for chest pain and palpitations. Gastrointestinal: Negative for abdominal pain, blood in stool, nausea and vomiting. Endocrine: Positive for heat intolerance. Negative for cold intolerance. Genitourinary: Negative for dysuria, frequency, hematuria, urgency, vaginal bleeding and vaginal discharge. Musculoskeletal: Positive for arthralgias and back pain. Skin: Negative for rash. Neurological: Negative for dizziness, seizures, syncope and headaches. Hematological: Does not bruise/bleed easily. Psychiatric/Behavioral: Positive for sleep disturbance. The patient is not nervous/anxious. Objective : BP 124/80 Ht 167.6 cm (5' 6) Wt 137 lb (62.1 kg) BMI 22.11 kg/m?? Physical Exam Constitutional: Appearance: She is well-developed. Cardiovascular: Rate and Rhythm: Normal rate and regular rhythm. Pulmonary: Effort: Pulmonary effort is normal. Breath sounds: Normal breath sounds. Chest: Breasts: Right: No mass. Left: No mass. Abdominal: Palpations: Abdomen is soft. Tenderness: There is no abdominal tenderness. Genitourinary: Vagina normal and uterus normal. Right labia: normal. Left Labia: normal. No vaginal discharge or rugosity. Right adnexa: normal. Left adnexa: normal. Cervix: Normal exam. Genitourinary Comments: Pap collected. Musculoskeletal: General: No tenderness. Skin: General: Skin is warm and dry. Neurological: Mental Status: She is alert and oriented to person, place, and time. Psychiatric: Behavior: Behavior normal. Assessment and Plan: Dina Bo is a 64 y.o. female who presents for: 1. Menopausal symptoms (Primary) Discussed management options including lifestyle modification, SSRIs, HRT. She had initial relief with Effexor but then not working as well. Discussed risks/benefits of HRT - decreased vasomotor symptoms, colon cancer and osteoporosis v increased risk of blood clots, stroke, [place] and breast cancer. Ri sks increase with prolonged use, advanced age. Safest time to start HRT is within a few years of onset of menopause. She still falls into this category as LMP was only 4 years ago. She elects for HRT. F/u 1.5 months. - estradiol-norethindrone 0.5-0.1 mg per tablet; Take 1 tablet by mouth daily Dispense: 30 tablet; Refill: 1 2. Postmenopausal atrophic vaginitis Change in lubricant has helped. Also discussed regular use of plant-based vaginal moisturizers. 3. Urgency of urination Discussed lifestyle modification- monitoring fluid intact, limiting bladder irritants such as caffeine, timed voiding. Also discussed option of medication, which she declines at this time. 4. Screening for malignant neoplasm of the cervix - Pap and High Risk HPV and Genotyping (Cytology Component); Future - High Risk HPV DNA Detection with Genotyping (Molecular component); Future Recommended screenings and preventive care discussed: Breast cancer: Self Breast Exams, Mammogram: Indicated Pap smear: Performed Diet and exercise discussed. Sandrine Lorenz MD 02/09/2025 .subjective documented in this encounter Plan of Treatment Pending Results Name Type Priority Associated Diagnoses Date /Time High Risk HPV DNA Detection with Genotyping (Molecular component) Lab Routine Screening for malignant neoplasm of the cervix 02/09/2025 1:12 PM CDT Scheduled Orders Name Type Priority Associated Diagnoses Orde r Schedule Pap and High Risk HPV and Genotyping (Cytology Component) Pathology and Cytology Routine Screening for malignant neoplasm of the cervix Expected: 02/09/2025, Expires: 02/09/2026 High Risk HPV DNA Detection with Genotyping (Molecular component) Lab Routine Screening for malignant neoplasm of the cervix Expected: 02/09/2025, Expires: 02/09/2026 documented as of this encounter Visit Diagnoses Diagnosis Menopausal symptoms- Primary Symptomatic menopausal or female climacteric states Postmenopausal atrophic vaginitis Urgency of urination Screening for malignant neoplasm of the cervix documented in this encounter Historical Medications * This list may reflect changes made after this encounter. losartan (COZAAR) 25 mg tablet Take 1 tablet (25 mg total) by mouth daily 06/18/2023 alendronate (FOSAMAX) 70 mg tablet Take 1 tablet (70 mg total) by mouth every 7 days 01/18/2025 added in this encounter Care Teams Manual Tester Relationship Specialty Start Date End Date Vishnu Arellano MD PCP - General Internal Medicine 01/24/20 documented as of this encounter
--- OUTSIDE RECORDS SUMMARY | 2025-02-09 13:12 | XMS_ITS | Encounter Summary ---
Author Organization [facility] Healthcare Address [address] [place] [address] Care Team Providers Care Respiratory Services Manager Name Role Phone Vishnu Arellano MD Primary Care Provider [phone] Encounter Details Date Type Department Care Team (Latest Contact Info) Description 02/09/2025 1:12 PM CDT - 02/09/2025 11:59 PM CDT Hospital Encounter [facility] [address] [place] [phone] Screening for malignant neoplasm of the cervix Discharge Disposition: Discharge to home or self care Social History Tobacco Use Types Packs/Day Years Used Date Smoking Tobacco: Former Cigarettes Comments No Sex and Gender Information Value Date Recorded Sex Assigned at Not on file 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 Gender Identity Female 01/01/2025 6:44 AM CDT Sexual Orientation Not on file Occupation Industry 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 Not on file Not on file Not on file documented as of this encounter Medications at Time of Discharge alendronate (FOSAMAX) 70 mg tablet Take 1 tablet (70 mg total) by mouth every 7 days 01/18/2025 estradiol-norethi ndrone 0.5-0.1 mg per tabletIndications :Menopausal symptoms Take 1 tablet by mouth daily 30 tablet 1 02/09/2025 02/09/2026 losartan (COZAAR) 25 mg tablet Take 1 tablet (25 mg total) by mouth daily 06/18/2023 documented as of this encounter Discharge Disposition Disposition Code Departure Means Destination Discharge to home or self care documented in this encounter Plan of Treatment [...] cervix documented in this encounter Care Teams Respiratory Services Manager Relationship Specialty Start Date End Date Vishnu Arellano MD PCP - General Internal Medicine 01/24/20 documented as of this encounter
[2025-02-10 07:57] LABS: Add Urine Microscopic? NO; Appearance Urine Clear (Clear); Glucose Urine UA Negative (Negative); Leukocyte Esterase Ur Negative (Negative); Nitrate Urine Negative (Negative); Specific Grav Ur 1.025 (1.010-1.020)
[2025-02-10 09:01] LABS: Alanine Aminotransferase 24 U/L (6-35); Albumin Level 4.7 g/dL (3.5-5.1); Alkaline Phosphatase 43 U/L (38-126); Anion Gap 8 mmol/L (4-12); Aspartate Amino Transferase 31 U/L (14-36); Bilirubin,Total 0.3 mg/dL (0.2-1.3); Blood Urea Nitrogen 19 mg/dL (7-17); Calcium 10.1 mg/dL (8.4-10.2); Carbon Dioxide 28 mmol/L (22-30); Chloride 106 mmol/L (98-107); Cholesterol 256 mg/dL (0-200); Estimated Glomerular Filt Rate 49; Glucose 95 mg/dL (65-110); HDL Direct 63 mg/dL; Osmolality Calculated 296 mOsm/kg (285-295); Potassium 4.5 mmol/L (3.4-5.0); Sodium 142 mmol/L (137-145); Total Protein 7.0 g/dL (6.3-8.2); Triglycerides 222 mg/dL (<150)
== END 2025-02-10 07:45 | disposition home or self-care (01) ==
LOC: CHSLAB 07:45
PROVIDERS: PCP Internal Medicine; Visit Provider Internal Medicine
DX: I10 Essential (primary) hypertension (principal); E78.5 Hyperlipidemia, unspecified
CPT/HCPCS: 36415; 80053; 80061; 81003

== ENCOUNTER 2025-03-12 07:48 | Outpatient (CLI) | payer OTHER, SELFPAY ==
--- NOTE | ~2025-03-12 | MM_ITS ---
EXAMINATION: MM screening naomi BI w victor hugo HISTORY: Screening TECHNIQUE: Craniocaudal and mediolateral oblique 3-D tomosynthesis images were obtained and synthetic 2-D images were generated. CAD analysis was submitted and interpreted. COMPARISON: Comparison to multiple prior studies sequentially, with oldest reviewed study dated , 08/03/2016 BREAST PARENCHYMAL COMPOSITION: The breasts are heterogeneously dense, which may obscure small masses. FINDINGS: There is no evidence of suspicious mass, calcification, or architectural distortion to suggest malignancy in either breast. IMPRESSION: 1. No mammographic evidence of malignancy. 2. Recommend routine screening mammography in one year. BI-RADS Category 1: Negative Reviewed, dictated and finalized at location B.
--- OUTSIDE RECORDS SUMMARY | 2025-03-12 07:50 | XMS_ITS | Clinical Summary ---
Author Organization [facility] Address [address] [place] [id number] Care Team Providers Care Costing Manager Name Role Phone Vishnu Arellano MD Primary Care Provider [phone] Allergies No known active allergies Medications No known medications Family History Medical History Relation Comments Hypertension Mother Osteoarthritis Mother Relation Status Comments Mother Social History Tobacco Use Types Packs/Day Years Used Date Smoking Tobacco: Some Days Smokeless Tobacco: Never Alcohol Use Standard Drinks/Week Comments Yes 0 (1 standard drink = 0.6 oz pur e alcohol) occaisional AUDIT-C Answer Date Recorded Frequency of Alcohol Consumption Never 12/27/2018 Average Number of Drinks Not on file 019 Frequency of Binge Drinking Not on file 12/15 Comments Unknown Sex and Gender Information Value Date Recorded Sex Assigned at Not on file 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 Gender Identity Not on file Sexual Orientation Not on file Last Filed Vital Signs Vital Sign Reading Time Taken Comments Blood Pressure 122/71 12/27/2018 8:56 AM CDT Pulse 71 12/27/2018 8:56 AM CDT Temperature 36.7 C (98.1 F) 12/27/2018 7:59 AM CDT Respiratory Rate 16 12/27/2018 8:56 AM CDT Oxygen Saturation 100% 12/27/2018 8:56 AM CDT Inhaled Oxygen Concentration - - Weight 62.1 kg (137 lb) 12/27/2018 7:59 AM CDT Height 170.2 cm (5' 7) 12/27/2018 7:59 AM CDT Body Mass Index 21.46 12/27/2018 7:59 AM CDT Plan of Treatment Health Maintenance Due Date Last Done Comments Cervical Cancer Screening Pa p Smear (Age 30 to 64) Every 3 Years 1962 Colorectal Cancer Screening Colonoscopy (10 Years) 1962 Annual Physical 1965 Hepatitis C 1980 DTaP, Tdap and Td Vaccines ( 1 - Tdap) 1981 Cervical Cancer Screening Curly duran with HPV Testing (Age 30 to 64) Every 5 Years 1992 Cervical Cancer Screening with HPV 1992 Mammogram Screening 2002 Pneumococcal Vaccine: 50+ Ye ars (1 of 1 - PCV) 2012 Zoster Vaccines (1 of 2) 2012 COVID-19 Vaccine (1 - 2023-2 5 season) 2025 RSV Immunization or 60+ Years (1 - 1-dose 75+ series) 2037 Meningococcal B Vaccine Aged Out No l onger eligible based on patient's age to complete this topic Meningococcal Vaccine Aged Out No jennifer fidel eligible based on patient's age to complete this topic RSV Immunizations Under 20 Months Aged Out No longer eligible based on patient's age to complete this topic Care Teams Costing Manager Relationship Specialty Start Date End Date Vishnu Arellano MD [address] [place] [address] PCP - General INTERNAL MEDICINE 12/27/18
--- OUTSIDE RECORDS SUMMARY | 2025-03-12 07:50 | XMS_ITS | Clinical Summary ---
Author Organization [facility] [address] [facility] [address] Address [address] [place] [address] Care Team Providers Care Dial Lathe Operator Name Role Phone Vishnu Arellano MD [...] Encounters Date Type Department Care Team Description 02/18/2025 Results Follow-Up [facility] [address] [place] [address] Sandrine Lorenz MD Pap and High Risk HPV and Genotyping (Cytology Component) 02/09/2025 1:12 PM CDT - 02/09/2025 11:59 PM CDT Hospital Encounter [facility] [address] [place] [address] Screening for malignant neoplasm of the cervix Discharge Disposition: Discharge to home or self care 02/09/2025 9:50 AM CDT Office Visit [facility] [address] [place] [address] Sandrine Lorenz MD Menopausal symptoms (Primary Dx); [...] on file 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 Gender Identity Female 01/01/2025 6:44 AM CDT [...] Last Done Comments Breast Cancer Screening-Mammogram 1960 Colon Cancer Screening-Colonoscopy 1960 Depression Screening 1962 Hepatitis C Screening 1962 DTaP/Tdap/Td Vaccine (1 - Tdap) 1973 Hepatitis B Screening 1980 Regular Well Visit/Exam 18-64 1980 Zoster Vaccine (1 of 2) 2012 Influenza Vaccine (#1) 2025 Cervical Cancer Screening 02/09/20262024, 02/09/2025 Pneumococcal vaccine <65 Aged Out No longer eligible based on patient's age to complete this topic Procedures Procedure Name Priority Date/Time Associated Diagnosis Comments HIGH RISK HPV DNA DETECTION WITH GENOTYPING Routine 02/09/2025 1:12 PM CDT Screening for malignant neoplasm of the cervix PAP AND HIGH RISK HPV, REFLEX TO GENOTYPING Routine 02/09/2025 11:12 AM CDT Screening for malignant neoplasm of the cervix from Last 3 Months Results * High Risk HPV DNA Detection with Genotyping (Molecular component) (02/09/2025 1:12 PM CDT) HPV HR 16 Not Detected Not Detected [facility] Comment:Testing performed by : [facility], [address] [place]., [address] HPV HR 18 Not Detected Not Detected [facility] Comment:Testing performed by : [facility], [address] [place]., [address] HPV HR Non 16/18 Not Detected Not Detected [facility] Comment: Interpretive Data Nucleic acid amplification for detection of high-risk Human Papilloma virus (HPV) is performed by the Reena Juan 6800 HPV test. This assay specifically detects HPV-16 and HPV-18 genotypes. The following HPV genotypes are detected as high-risk HPV: HPV-31, 33, 35, ,39, 45, 51, 52, 56, 58, 59, 66, and 68. This assay has been approved by the [place] Food and Drug Administration for detection of HPV in cervical specimens collected by a physician using an endocervical brush/spatula or cervical broom and placed in the ThinPrep Pap Test PreservCyt collection containers. The performance characteristics of this test have been verified by the [facility] Molecular Infectious Disease laboratory. Correlate with separately reported cytology results, as applicable. Interpretive data last revised 22 Testing performed by: [facility], [address] [place]., [address] Endocervical 02/09/2025 1:12 PM CDT 02/10/2025 12:53 PM CDT Narrative CERNER - 02/10/2025 6:39 PM CDT Clinical history and diagnosis->Liquid-based PAP test with high risk HPV test- Z12.4 Number of vials->1 Testing type->Screening Last menstrual period (date if known)->unknown Menstrual status->Postmenopausal us Sandrine Lorenz MD LAB BODY FLUIDS AND S TOOLS ORDERABLES Final Result Performing Organization Address City/State/[facility] Co de Phone Number [address] Department [place] [address] [facility] * Pap and High Risk HPV and Genotyping (Cytology Component) (02/09/2025 11:12 AM CDT) Thin prep (Pap test) 02/09/2025 11:12 AM CDT 02/09/2025 11:12 AM CDT Narrative PATHOLOGY - 02/16/2025 11:37 AM CDT Department of Pathology [address] [place] [address] Final Report with Addendum Note to Patients: This report may contain a detailed description of human tissue sent by a health care provider to the laboratory for pathologic evaluation. The content of this report is essential for diagnosis and may provide important critical findings. This information may be unfamiliar to patients to review without a medical professional present. It is advised that the patient review this report in the presence of a health care provider who can answer questions and explain the details. Patient Name: SANDRO VILLALBA Address: [address] [place], [place] [id number] Gender: F : 1960 (Age: 64) Service: Location: [facility] #: [id number] Patient Type: [facility] SPECIMEN Taken: 02/09/2025 Received: 02/09/2025 Accessioned:: 02/10/2025 Reported: 02/16/2025 Physician(s): MD Sandrine Hart MD Diagnosis: SOURCE OF SPECIMEN SCREENING THIN PREP IMAGED PAP w/ HPV: STATEMENT OF ADEQUACY - Satisfactory for evaluation; endocervical/transformation zone component present GENERAL CATEGORIZATION: - Negative for intraepithelial lesion or malignancy ALISON Pollard(ASCP) Report Electronically Reviewed and Signed Out By ALISON Pollard(ASCP) 02/16/2025 11:37:21Addenda: HPV Test Interpretation (Normal-Negative for High Risk HPV) HPV HR 16- Not detected HPV HR 18-Not detected HPV HR non 16/18- Not detected Interpretive Data Nucleic acid amplification for detection of high-risk Human Papilloma virus (HPV) is performed by the Reena Juan 6800 HPV test. This assay specifically detects HPV- 16 and HPV-18 genotypes. The following HPV genotypes are detected as high-risk HPV: HPV-31, 33, 35, 39, 45, 51, 52, 56, 58, 59, 66, and 68. This assay has been approved by the [place] Food and Drug Administration for detection of HPV in cervical specimens collected by a physician using an endocervical brush/spatula or cervical broom and placed in the ThinPrep Pap Test PreservCyt collection containers. The performance characteristics of this test have been verified by the [facility] Molecular Infectious Disease laboratory. Correlate with reported cytology results, as applicable. Interpretive data last revised 22 ALISON Thakkar(ASCP)Report Electronically Reviewed and Signed Out By ALISON Thakkar(ASCP) 02/11/2025 11:01:59 Specimen(s) Received: A: SCREENING THIN PREP IMAGED PAP w/ HPV Clinical History: Menstrual History: Post-menopausal The Pap test is a screening test used to aid in the detection of cervical cancer and its precursors. It should not be the sole means by which malignant and premalignant lesions are diagnosed. Both false negative and false positive results may occur. It also has poor sensitivity for the detection of endometrial lesions and should not be used to evaluate suspected endometrial abnormalities. For these reasons it is most important to obtain Pap tests at regular intervals. The performance characteristics of some immunohistochemical stains, fluorescence in-situ hybridization tests and immunophenotyping by flow cytometry cited in this report (if any) were determined by the Surgical Pathology Department at as part of an ongoing supervisor vendor quality program and in compliance with federally mandated regulations drawn from the Clinical Laboratory Improvement Act of 1988 (CLIA '88). Some of these tests rely on the use of analyte specific reagents and are subject to specific labeling requirements by the US Food and Drug Administration. Such diagnostic tests may only be performed in a facility that is certified by the Department of Health and Human Services as a high complexity laboratory under CLIA '88. The FDA has determined that such clearance or approval is not necessary. This test is used for clinical purposes. It should not be regarded as investigational or for research. Nevertheless, federal rules concerning the medical use of analyte specific reagents require that the following disclaimer be attached to the report: This test was developed and its performance characteristics determined by the Surgical Pathology Department [facility]. It has not been cleared or approved by the U. S. Food and Drug Administration. Sandrine Lorenz MD LAB CYTOLOGY ORDERABL ES Final Result [facility] [address] [place] [address] from Last 3 Months Insurance [facility] Care Teams Dial Lathe Operator Relationship Specialty Start Date End Date Vishnu Arellano MD PCP - General Internal Medicine 01/24/20
--- OUTSIDE RECORDS SUMMARY | 2025-03-12 07:50 | XMS_ITS | Encounter Summary ---
Author Organization [facility] Address [address] [place] [address] Care Team Providers Care Clinical Administrative Coordinator Name Role Phone Vishnu Arellano MD Primary Care Provider [phone] Encounter Details Date Type Department Care Team (Late st Contact Info) Description 11/22/2018 Abstract [facility] CONVERSION [address] [place] [address] , Generic Conversion, Social History Tobacco Use Types Packs/Day Years Used Date Smoking Tobacco: Never Assessed Comments Unknown Sex and Gender Information Value Date Recorded Sex Assigned at Not on file 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
--- OUTSIDE RECORDS SUMMARY | 2025-03-12 07:51 | XMS_ITS | Encounter Summary ---
Author Organization [facility] Address [address] [place] [address] Care Team Providers Care Community Cultural Development Officer Name Role Phone Vishnu Arellano MD Primary Care Provider [phone] Encounter Details Date Type Department Care Team (Late st Contact Info) Description 02/18/2025 Results Follow-Up [facility] [address] [place] [address] Sandrine Lorenz MD [address] [place] [address] Pap and High Risk HPV and Genotyping (Cytology Component) Social History Tobacco Use Types Packs/Day Years Used Date Smoking Tobacco: Former Cigarettes Comments No Sex and Gender Information Value Date Recorded Sex Assigned at Not on file 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
== END 2025-03-12 07:49 | disposition home or self-care (01) ==
LOC: CHSIMG 07:48
PROVIDERS: PCP Internal Medicine; Visit Provider Internal Medicine
DX: Z12.31 Encounter for screening mammogram for malignant neoplasm of breast (principal)
CPT/HCPCS: 77063; 77067